=== PATIENT | male | born 1965 | race African-American/Black ===

== ENCOUNTER 2017-06-12 21:01 | Inpatient (IN) | payer OTHER, MEDICARE ==
[~2017-06-12] VITALS: Ht 182.9 cm; Wt 117.7 kg
--- NOTE | 2017-06-12 21:04 | ED GENERAL ADULT ---
History of Present Illness General Chief Complaint: General Adult Stated Complaint: BIBA B/S [employer] [place] [employer] CUST[place] Allergies Coded Allergies: MDX - Meperidine (From DEMEROL) (02/23/11) Past History Travel History Traveled to [place] past 21 day No Psychosocial History What is your primary language Croatian Progress Plan of Care: Orders Procedure Date/time Status MIXED VENOUS BLOOD GAS (GEN) 06/12 2103 Active COMPREHENSIVE METABOLIC PANEL 06/12 2103 Active CBC WITHOUT DIFFERENTIAL 06/12 2103 Active ACETONE 06/12 2103 Active Departure Departure Condition: Stable Referrals: Patient Has No Primary Care Dr (PCP/Family) Departure Forms: Customer Survey General Discharge Information
--- NOTE | 2017-06-12 21:09 | ED GENERAL ADULT ---
History of Present Illness General Chief Complaint: General Adult Stated Complaint: BIBA B/S [employer] [place] [employer] C[place] Source: patient, EMS, police Exam Limitations: intoxication Vital Signs & Intake/Output Vital Signs & Intake/Output Vital Signs Date Time Temp Pulse Resp B/P B/P Pulse O2 O2 Flow FiO2 Mean Ox Delivery Rate 06/12 2356 80 112/76 06/12 2324 63 126/83 06/12 2259 68 178/101 06/12 2245 98.9 87 16 178/101 94 Room Air 06/12 2107 96.6 82 18 171/88 94 Room Air ED Intake and Output 06/13 0000 06/12 1200 Intake Total 480 Output Total 600 Balance -120 Intake, Oral 480 Output, Urine 600 Patient 259 lb Weight Weight Standing Scale Measurement Method Allergies Coded Allergies: meperidine (From DEMEROL) (VOMITING 06/12/17) Reconcile Medications Dapagliflozin Propanediol (Farxiga) 10 MG TABLET 1 TAB PO DAILY DM (Reported) Gabapentin (Neurontin) 800 MG TABLET 1 TAB PO BID NERVE PAIN (Reported) Insulin Aspart, Recombinant (Novolog Flexpen) 100 UNIT/ML INSULN.PEN 30 UNITS SC QPM DM (Reported) Losartan Potassium 50 MG TABLET 1 TAB PO DAILY BP (Reported) Risperidone Microspheres (Risperdal Consta) (Unknown Strength) SYRINGE ( Unknown Dose) INJ AD UNKNOWN (Reported) Triage Note: PT [facility] [place] [employer] CUSTODY. STATES HE WAS A DIABETIC, PD CALLED EMS FOR A BLOOD SUGAR CHECK AND IT WAS 400, TRANSPORTED TO ER FOR EVAL OF BLOOD SUGAR. PTS CURRENT SUGAR 325. DENIES ANY ABD PAIN. STATES HE FEELS THIRSTY. DANIEL Zarate IN ROOM FOR EVAL. PD AT BEDSIDE WITH PT WELL. Triage Nurses Notes Reviewed? yes Onset: Abrupt Duration: unknown duration Timing: recent history Injury Environment: home No Modifying Factors: none HPI: 52-year-old male comes into the emergency room for further evaluation of elevated blood sugar. Patient is in police custody. He had a warrant for his arrest. He is a type II diabetic. His sugar was reportedly elevated. EMS came over and checked him out per police request. He denies any chest pain shortness of breath. Denies any suicidal or homicidal ideation. Denies any pain. He admits to cocaine use. Denies any alcohol use. (Ryder Shipman) Past History Travel History Traveled to [place] past 21 day No Medical History Any Pertinent Medical History? see below for history Endocrine: diabetes Surgical History Surgical History: non-contributory Psychosocial History What is your primary language Thai Family History Hx Contributory? No (Ryder Shipman) Review of Systems Review of Systems Constitutional: Reports: see HPI. EENTM: Reports: no symptoms. Respiratory: Reports: no symptoms. Cardiovascular: Reports: no symptoms. GI: Reports: no symptoms. Genitourinary: Reports: no symptoms. Musculoskeletal: Reports: no symptoms. Skin: Reports: no symptoms. Neurological/Psychological: Reports: see HPI. Hematologic/Endocrine: Reports: no symptoms. Immunologic/Allergic: Reports: no symptoms. All Other Systems: Reviewed and Negative (Ryder Shipman) Physical Exam Physical Exam General Appearance: well developed/nourished, alert, awake, intoxicated Head: atraumatic, normal appearance Eyes: Bilateral: normal appearance. Ears, Nose, Throat: normal ENT inspection, hearing grossly normal Neck: normal inspection Respiratory: normal breath sounds, no respiratory distress Cardiovascular: regular rate/rhythm Gastrointestinal: soft Back: normal inspection Extremities: normal inspection, normal range of motion Skin: intact, normal color Core Measures ACS in differential dx? Yes CVA/TIA Diagnosis: No Sepsis Present: No Sepsis Focused Exam Completed? No (Ryder Shipman) Progress Differential Diagnoses I considered the following diagnoses in my evaluation of the patient: DKA, hyperosmolar, dehydration, drug intoxication Plan of Care: Orders Procedure Date/time Status Nothing by Mouth 06/13 B Active EKG 06/13 1000 Active TROPONIN LEVEL 06/13 0900 Active PARTIAL THROMBOPLASTIN TIME 06/13 0530 Active CBC WITHOUT DIFFERENTIAL 06/13 0400 Active BASIC ELECTROLYTES PLUS BUN&CR 06/13 0400 Active EKG 06/13 0400 Active TROPONIN LEVEL 06/13 0300 Active Consistent Carbohydrate 2 06/12 D Complete Saline Lock 06/12 2331 Active Misc Message 06/12 2331 Active ED Holding Orders 06/12 2331 Active Admit to inpatient 06/12 2331 Active Vital Signs 06/12 2331 Active Lab Add-on Test 06/12 2319 Active Pathway - chart 06/12 2316 Active Patient Data 06/12 2316 Active Code Status 06/12 2316 Active Patient Data 02/08 2310 Active Add-on Test (ER Only) 06/12 231 Active Add-on Test (ER Only) 06/12 230 Active ECHOCARDIOGRAM 06/12 230 Active Intake & Output 06/12 2249 Active Add-on Test (ER Only) 06/12 2232 Active Telemetry/Base Ply Hand 06/12 2232 Active TROPONIN LEVEL 06/12 2133 Active PARTIAL THROMBOPLASTIN TIME 06/12 2133 Complete PROTHROMBIN TIME 06/12 2133 Complete PHOSPHORUS 06/12 2133 Active MAGNESIUM 06/12 2133 Active LIPID PANEL 06/12 2133 Active GLYCOSYLATED HGB 06/12 2133 Active ETHANOL 06/12 2133 Active URINE DRUGS OF ABUSE 06/12 2107 Complete EKG 06/12 2107 Active MIXED VENOUS BLOOD GAS (GEN) 06/12 2103 Active COMPREHENSIVE METABOLIC PANEL 06/12 2103 Active CBC WITHOUT DIFFERENTIAL 06/12 2103 Complete ACETONE 06/12 2103 Active Pathway - chart 06/12 UNK Active House Staff 06/12 UNK Active VTE Mechanical Prophylaxis 06/12 UNK Active FingerStick- Glucose 06/12 UNK Active EKG 06/12 UNK Active CASE MANAGEMENT CONSULT 06/12 UNK Active Current Medications Sig/Demetrius Start time Last Medication Dose Stop Time Status Admin Multivitamins 1 TAB DAILY 06/13 1000 AC (Theragran Vitamins) Insulin Aspart 0 TIDAC 06/13 0800 UNVr (NovoLOG) Insulin Human Regular 0 Q6 06/12 2359 UNVr 06/13 (NovoLIN R) 0006 Heparin Sodium 25,000 UNIT Q24H 06/12 2245 AC 06/12 (Porcine) 2321 (Heparin) Sodium Chloride 500 ML Laboratory Tests 06/12/172246: Urine Opiates Screen < 100.00, Methadone Screen < 40, Barbiturate Screen < 60, Ur Phencyclidine Scrn < 6.00, Amphetamines Screen < 100, U Benzodiazepines Scrn < 85, Urine Cocaine Screen > 1000 H, Urine Cannabis Screen 6.20 06/12/172133: Anion Gap 10, Estimated GFR > 60, BUN/Creatinine Ratio 11.7, Glucose 320 H, Hemoglobin A1c Pending, Calcium 9.2, Phosphorus 4.2, Magnesium 2.0, Total Bilirubin 0.4, AST 18, ALT 34, Alkaline Phosphatase 97, Troponin I 0.41 *H, Total Protein 6.3, Albumin 3.3 L, Globulin 3.0, Albumin/Globulin Ratio 1.1, Triglycerides 137, Cholesterol 223 H, LDL Cholesterol, Calc 130 H, HDL Cholesterol 66 H, Cholesterol/HDL Ratio 3, PT 10.3, INR 0.98, APTT 31, CBC w Diff NO MAN DIFF REQ, RBC 4.34 L, MCV 95.0 H, MCH 30.2, MCHC 31.8 L, RDW 14.0 , MPV 10.0, Gran % 64.1, Lymphocytes % 24.5, Monocytes % 9.2, Eosinophils % 2.0, Basophils % 0.2, Absolute Granulocytes 5.4, Absolute Lymphocytes 2.1, Absolute Monocytes 0.8 H, Absolute Eosinophils 0.2, Absolute Basophils 0, Serum Alcohol < 10.0, Acetone Level NEGATIVE 06/12/17 2108: Troponin I Cancelled Diagnostic Imaging: Viewed by Me: Radiology Read. Discussed w/RAD: Radiology Read. Radiology Impression: PATIENT: DEBORAH DUKE PRESENT AGE: 52 PATIENT ACCOUNT NO: [id number] : 63 LOCATION: [facility], [place] ORDERING PHYSICIAN: Ryder SANCHEZ SERVICE DATE: 06/12/17 EXAM TYPE: RAD - XRY-PORTABLE CHEST XRAY EXAMINATION: XR PORTABLE CHEST CLINICAL INFORMATION: Chest pain COMPARISON: None TECHNIQUE: Portable frontal view of the chest was obtained. 11:05 PM FINDINGS: No significant abnormality is noted involving the heart, lungs, mediastinum, bony thorax or soft tissues. IMPRESSION: Unremarkable examination. DICTATED BY: Robert Leal MD DATE/TIME DICTATED:06/12/172340 MFTS:SERGE DATE/TIME TRANSCRIBED:06/12/172340 CONFIDENTIAL, DO NOT COPY WITHOUT APPROPRIATE AUTHORIZATION. <Electronically signed in Other Vendor System> SIGNED BY: Robert Leal MD 06/12/17 5634 Initial ED EKG: normal sinus rhythm, rate (84), nonspecific ST T wave chg (Ryder Shipman) Departure Departure Disposition: HOME OR SELF CARE Condition: Stable Clinical Impression Primary Impression: Non-STEMI (non-ST elevated myocardial infarction) Referrals: Patient Has No Primary Care Dr Departure Forms: Customer Survey General Discharge Information Admission Note Spoke With: Dorota Moran MD Documentation of Exam: Documentation of any treatments & extenuating circumstances including Concerns Regarding Discharge (functional status, medication knowledge or non-compliance, living conditions, etc.) that warrant an admission rather than observation: Patient will require IV heparin. Cardiology consultation. Serial troponins. Cardiac telemetry. Medically not safe for discharge. (Ryder Shipman) PA/IRRIGATOR VAL[employer] PIPE Co-Sign Statement Statement: ED Attending supervision documentation- [x] I saw and evaluated the patient. I have also reviewed all the pertinent lab results and diagnostic results. I agree with the findings and the plan of care as documented in the PA's/IRRIGATOR VALVE PIPE's documentation. 06/12/17, 22:54... I assumed primary care of the patient. pt with + troponin, likely due to cocaine abuse, non acute ekg. He is now chest pain free. pt merits aspirin, iv heparin, serial troponins/ekg, cards eval in am. [] I have reviewed the ED Record and agree with the PA's/IRRIGATOR VALVE PIPE's documentation. [] Additions or exceptions (if any) to the PAs/IRRIGATOR VALVE PIPE's note and plan are summarized below: [] (Carissa CERVANTES,Miah Bautista) Critical Care Note Critical Care Note Critical Care Time: 30-74 min (45) (Ryder Shipman)
[2017-06-12 21:49] LABS: ABSOLUTE BASOPHIL COUNT 0 /CUMM (0.0-0.2); ABSOLUTE EOSINOPHIL COUNT 0.2 /CUMM (0.0-0.7); ABSOLUTE GRANULOCYTE CT 5.4 /CUMM (1.4-6.5); ABSOLUTE LYMPH COUNT 2.1 /CUMM (1.2-3.4); ABSOLUTE MONOCYTE COUNT 0.8 /CUMM (0.10-0.60); BASOPHIL % 0.2 % (0.0-2.0); GRANULOCYTE % 64.1 % (42.2-75.2); HEMATOCRIT 41.3 % (42-52); MEAN CORPUSCULAR HGB 30.2 PG (27.0-31.0); MEAN CORPUSCULAR HGB CONC 31.8 G/DL (33.0-37.0); PLATELET COUNT 370 /CUMM (130-400); RED BLOOD CELL CT 4.34 /CUMM (4.70-6.10); WHITE BLOOD CELL COUNT 8.4 /CUMM (4.8-10.8)
[2017-06-12] MEDS ORDERED: NOVOLOG FL100 UNIT/1 SC (21:56)
[2017-06-12] MEDS ORDERED: FARXIGA10 M1 PO (21:57)
[2017-06-12] MEDS ORDERED: LOSARTAN POTASS50 M1 PO (21:57)
[2017-06-12] MEDS ORDERED: RISPERDAL50 MG/2 ML INJ (21:58)
[2017-06-12] MEDS ORDERED: NEURONTIN800 M2 PO (21:58)
--- NOTE | 2017-06-12 22:59 | History & Physical ---
Cornell Lane MD 06/12/17 2258: General Information and HPI MD Statement: I have seen and personally examined DEBORAH DHILLON and documented this H&P. The patient is a 52 year old M who presented with a patient stated chief complaint of [hyperglycemia, NSTEMI]. Source of Information: patient, police Exam Limitations: poor historian, intoxication History of Present Illness: Patient is a 52-year-old male with a PMH significant for hypertension, diabetes, diabetic neuropathy, bipolar disorder, cocaine abuse presents to the hospital after being arrested found to be hyperglycemic. Patient was evaluated in the ED and found to have elevated troponins. Patient states that he has been smoking crack cocaine and marijuana heavily since 6 days prior to admission. He reports that he had been having some chest pain and palpitations associated with cocaine use. He is currently pain-free and not experiencing palpitations. He denied any shortness of breath, diaphoresis, lightheadedness, dizziness, nausea, vomiting, fever, chills associated with these episodes chest pain. He has never had an NV in the past required a cardiac catheterization and has no significant family history of cardiac disease or sudden . However the patient is a very poor historian and incredibly somnolent, nodding off multiple times during the interview making his HPI and review of systems unreliable. Patient had the police called on him for going [id number] and asking for money , at this point he was found to have a warrant out for his arrest and was taken into custody. Allergies/Medications Allergies: Coded Allergies: meperidine (From DEMEROL) (VOMITING 06/12/17) Past History Travel History Traveled to [place] past 21 day No Medical History Neurological: diabetic neuropathy EENT: NONE Cardiovascular: hypertension Respiratory: NONE Gastrointestinal: NONE Hepatic: NONE Renal: NONE Musculoskeletal: NONE Psychiatric: bipolar disease Endocrine: diabetes Blood Disorders: NONE Cancer(s): NONE THERAPY TECH/Reproductive: NONE Surgical History Surgical History: non-contributory Past Family/Social History Family History Relations & Conditions if any MOTHER CVA Psychosocial History Who Do You Live With? self Primary Language: Setswana Smoking Status: Current Everyday Smoker ETOH Use: occasional use Illicit Drug Use: cocaine, marijuana Review of Systems Review of Systems Constitutional: Denies: chills, diaphoresis, fever, weakness. EENTM: Denies: blurred vision, double vision, visual changes. Cardiovascular: Reports: chest pain (associated with cocaine use), palpitations (associated with cocaine use). Respiratory: Denies: cough, short of breath, wheezing. GI: Denies: constipation, diarrhea, nausea, changes in stool, vomiting. Genitourinary: Reports: no symptoms. Musculoskeletal: Reports: no symptoms. Exam & Diagnostic Data Last 24 Hrs of Vital Signs/I&O Vital Signs Date Time Temp Pulse Resp B/P B/P Pulse O2 O2 Flow FiO2 Mean Ox Delivery Rate 06/12 2356 80 112/76 06/12 2324 63 126/83 06/12 2259 68 178/101 06/12 2245 98.9 87 16 178/101 94 Room Air 06/12 2107 96.6 82 18 171/88 94 Room Air Intake & Output 06/13 0800 06/13 0000 06/12 1600 Intake Total 480 Output Total 600 Balance -120 Intake, Oral 480 Output, Urine 600 Patient 259 lb Weight Weight Standing Scale Measurement Method Physical Exam General Appearance Cooperative, No Acute Distress, somnolent, oriented x 3 Skin Temp/Moisture Exam: Warm/Dry Sepsis Skin Exam (color): Normal for Ethnicity HEENT Atraumatic, PERRLA, EOMI, Mucous Membr. moist/pink Neck Supple, No JVD Cardiovascular Regular Rate, Normal S1, Normal S2 Lungs Clear to Auscultation, Normal Air Movement Abdomen Normal Bowel Sounds, Soft, No Tenderness Neurological Normal Speech, Strength at 5/5 X4 Ext, Normal Tone, Sensation Intact, Cranial Nerves 3-12 NL Extremities No Clubbing, No Cyanosis, 2+ pitting edema of the distal LEs bilaterally, with faint distal pulses on the L leg and no palpable pulses of the R leg, R leg pulses also not detectable with doppler, LEs non tender to palpation Last 24 Hrs of Labs/Taiwo: Laboratory Tests 06/12/17 2247: Urine Opiates Screen < 100.00, Methadone Screen < 40, Barbiturate Screen < 60, Ur Phencyclidine Scrn < 6.00, Amphetamines Screen < 100, U Benzodiazepines Scrn < 85, Urine Cocaine Screen > 1000 H, Urine Cannabis Screen 6.20 06/12/17 2134: Anion Gap 10, Estimated GFR > 60, BUN/Creatinine Ratio 11.7, Glucose 320 H, Hemoglobin A1c Pending, Calcium 9.2, Phosphorus 4.2, Magnesium 2.0, Total Bilirubin 0.4, AST 18, ALT 34, Alkaline Phosphatase 97, Troponin I 0.41 *H, Total Protein 6.3, Albumin 3.3 L, Globulin 3.0, Albumin/Globulin Ratio 1.1, Triglycerides 137, Cholesterol 223 H, LDL Cholesterol, Calc 130 H, HDL Cholesterol 66 H, Cholesterol/HDL Ratio 3, PT 10.3, INR 0.98, APTT 31, CBC w Diff NO MAN DIFF REQ, RBC 4.34 L, MCV 95.0 H, MCH 30.2, MCHC 31.8 L, RDW 14.0 , MPV 10.0, Gran % 64.1, Lymphocytes % 24.5, Monocytes % 9.2, Eosinophils % 2.0, Basophils % 0.2, Absolute Granulocytes 5.4, Absolute Lymphocytes 2.1, Absolute Monocytes 0.8 H, Absolute Eosinophils 0.2, Absolute Basophils 0, Serum Alcohol < 10.0, Acetone Level NEGATIVE 06/12/17 2108: Troponin I Cancelled Diagnostic Data EKG Results NSR, possible slight J point elevation in V1-3, Normal axis, HR 84, QTc 478 CXR Results unremarkable Assessment/Plan Assessment: Patient is a 52-year-old male with a PMH significant for hypertension, diabetes, diabetic neuropathy, bipolar disorder, cocaine abuse presents to the hospital after being arrested found to be hyperglycemic. Patient was evaluated in the ED and found to have elevated troponins. He is currently asymptomatic but has been having chest pain and palpitations associated with smoking crack cocaine over the past several days. Problem list # NSTEMI #Hyperglycemia #Cocaine abuse #History of hypertension, bipolar disorder Plan -Admit to telemetry -Continue telemetry monitoring -Serial troponins and EKG, trend troponins until they peak -echocardiogram -Every 6 hours Accu-Cheks and nothing by mouth NovoLog sliding scale -Levemir 10 units twice a day -Endocrinology consult and cardiology consult -IV heparin -Aspirin -Continue home dose of Neurontin 800 mg twice a day -hold losartan for now, patient received IV lopressor in ED -Psych consult - Arterial doppler US of the LLE given nonpalpable pusles and undetectable pules with doppler at bedside -Attempted to reach out to patient's sister over the phone, there was no answer and a message was not left. Should be called again in the morning to inform her of patient's hospitalization. -Nothing by mouth pending cardiology evaluation in a.m. -DVT prophylaxis: heparin, ALPS -Code status: full code As Ranked By This Provider Problem List: 1. Non-STEMI (non-ST elevated myocardial infarction) 2. Hyperglycemia Core Measures/Misc (01/19) Acute Coronary Syndrome ACS Diagnosis: Yes No Beta-Roderick d/t cocaine positive Congestive Heart Failure Congestive Heart Failure Diagnosis No Cerebrovascular Accident CVA/TIA Diagnosis: No VTE (View Protocol) VTE Risk Factors Age>40 No Mechanical VTE Prophylaxis d/t N/A MechProphylax Ordered No VTE Pharm Prophylaxis d/t NA PharmProphylax ordered Sepsis (View protocol) Sepsis Present: No Cipriano CERVANTES,[facility] 06/13/17 0136: General Information and HPI Allergies/Medications Home Med list Aspirin (Aspirin*) 81 MG TAB.CHEW 81 MG PO DAILY HEART Atorvastatin Calcium 40 MG TABLET 40 MG PO 1700 HEART Carvedilol 3.125 MG TABLET 3.125 MG PO BID heart Dextrose 5 %-0.45 % NaCl (Dextrose 5%-0.45% NaCl IV Soln) 5 %-0.45 % IV.SOLN 50 ML IV PER HOUR NPO Gabapentin (Neurontin) 800 MG TABLET 1 TAB PO BID NERVE PAIN (Reported) Heparin Sod,Porcine/0.9 % NaCl (Heparin-Ns 25,000 Units/250 Ml) 25,000 UNIT/250 ML (100 UNIT/ML) IV.SOLN 1 BAG IV SEE ADMIN CRITERIA NSTEMI per ACS protocol Insulin Aspart (Novolog) 100 UNIT/ML VIAL 0 UNITS SC Q4 DM Q4 hours Blood Insulin Sugar Units <80 0 81-100 0 151-200 4 201-250 5 251-300 6 301-350 7 351-400 8 >400 8 Call Doctor Insulin Detemir (Levemir) 100 UNIT/ML VIAL 10 UNITS SC BID DM Losartan Potassium 50 MG TABLET 1 TAB PO DAILY BP (Reported) Nitroglycerin (Nitro-Bid) 2 % OINT...G. 0.5 GM TOP Q12 chest pain Risperidone Microspheres (Risperdal Consta) 50 MG/2 ML SYRINGE 1 SYR INJ EVERY 2 WEEKS BIPOLAR (Reported) Resident Review Statement Resident Statement: examined this patient, discussed with music intern Other Findings: H: Mr. Dhillon is a 52-year-old gentleman past medical history of diabetes, bipolar disorder, peripharel neuropathy, hypertension who was brought in by law enforcement after he was found to be hyperglycemic 400, after telling law enforcement that he was a diabetic. It appears that Mr. Dhillon had been knocking on the doors of various individuals until the police were called. They unit went to see Mr. Dhillon and upon searching his name found that there was a warrant out for his arrest. He was subsequently taken in under police custody. EMS subsequently conducted a fingerstick and found the patient to have a blood sugar level of 400. During our clinical interaction with the chief supply chain officer at bedside the patient was pleasantly confused and somnolent however able to answer questions after having to be prompted to wake up several times. At the time of our clinical interaction patient was chest pain-free. Prior to admission the patient does endorse using cannabis and smoking crack cocaine. He denies any IV drug abuse. No family history of any individuals with sudden cardiac . 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 R on review of systems he denies any fever, chills, nausea, vomiting he did endorse heart palpitations. He denied any shortness of breath. E: Temperature 96.6. Respirations 18. Blood pressure 171/88. Heart rate was 82. General Appearance Alert, Oriented X3, Cooperative, No Acute Distress. Manufacturing Controller at Bedside. Skin Temp/Moisture Exam: Warm/Dry. Neck Supple,Normal Range of motion. JVD + Cardiovascular : Normal S1, Normal S2. No Murmurs. Gallops. Lungs: Mild Wheezing noted throughout. Abdomen Normal Bowel Sounds, Soft, No Tenderness Neurological Normal Speech, Strength at 5/5 X4 Ext, Normal Tone, Sensation Intact. Abnormal Proprioception in Left lower extemity. Cranial Nerves 3-12 NL Extremities 2+ LE edema below the knees. LLE > RLE Vascular Pulses Weak. L White cell count 8.4. H&H 13.1 and 41.3 respectively. Platelets 370. Initial troponin 0.41. I: As Above. Ekg: Normal sinus rhythm. QTC 478. J waves V2 and V3. Chest x-ray done was within normal limits and unremarkable. A/P Mr. Dhillon is a 52-year-old gentleman past medical history of diabetes, bipolar disorder, for peripharel neuropathy and hypertension who was brought in by law enforcement after he was found to be hyperglycemic. While in the emergency department the patient troponin did come back at 0.41. He was asymptomatic during the course of our interaction. He is elevations in troponin is likely attributed to recent cocaine use. NSTEMI. History of bipolar disorder History of diabetes History of peripheral neuropathy History of substance abuse. Admit patient to telemetry. Serial troponins and EKG. Continue IV heparin Continue aspirin. Obtain formal cardiology consultation in the a.m. Echocardiogram in a.m. Continue IV heparin Avoid beta blockers, given cocaine use. Nitroglycerin paste every 12 hours. Accu-Cheks every 4. Maintain Novolin SS Levemir 10 units twice a day. Obtain endocrinology consultation in a.m. Obtain psych consultation in a.m. Arterial Doppler in a.m. to rule out occlusion. Venous ultrasound to rule out DVT. Patient was unsure of his medication and will need to confirm medication in a.m. Keep nothing by mouth after midnight. DVT prophylaxis on IV heparin. Patient is a full code. Dean CERVANTES, [facility] 06/13/17 0211: Attending MD Review Statement Attending Statement Attending MD Statement: examined this patient, discuss w/resident/PA/EIGHT SECTION BLOWER, agreed w/resident/PA/EIGHT SECTION BLOWER, reviewed images, amended to note Attending Assessment/Plan: 52 yo M with h/o bipolar disorder, T2DM on insulin c/b neuropathy, HTN, who was in police custody today as he was randomly knocking on people's doors asking for money. While in custody, police called EMS for a blood sugar check which was noted to be in 400's, so he was sent to ER for further eval. Patient is very somnolent, arousble and tends to have tangential thinking. He has been using cocaine and marijuana but denies IV drug use. He reports having substernal chest pain for the past 5 days but is not able to describe it or give an details. He is currently chest pain free. Patient denies any underlying cardiac history ischemic heart disease or arrhythmia. He states he has 'mold in his lungs' and he was admitted for this to [facility] last year. 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 Vitals stable except for elevated BP. Exam: lethargic, tends to fall asleep while talking, he is tearful at times, oriented x2, not aware of date/time. MMM, Neck supple, PERRL, Chest b/l scattered wheeze, Heart S1S2 regular, systolic murmur+, Abd benign, LE: LLE more swollen compared to RLE, dopplerable peripheral pulse on left, not dopplerable on the right. Labs: no leukocytosis, H/H 13.1/41.3, Na 133, glucose 320, trop 0.41. Acetone neg. Alcohol < 10. Urine tox screen positive for cocaine and cannabis. CXR: unremarkable. EKG: Sinus rhythm with J-point elevation in V2-3, with TWI in I and aVL (no old EKG), Qtc 478. In the ER, patient received IV fluids, insulin levemir, aspirin IV metoprolol and IV heparin. Assessment and plan: 1. NSTEMI 2. Heavy cocaine abuse 3. Type 2 diabetes on insulin with peripheral neuropathy 4. Essential hypertension 5. Polysubstance abuse 6. History of bipolar disorder 7. Possible underlying peripheral vascular disease - Admit to Telemetry - Monitor for arrhythmias - Serial EKG and troponin until peak - Continue aspirin and IV heparin per PTT protocol for ACS - Obtain echocardiogram - Cardio consult (Dr. Hill was called by ER) - No beta blockers given patient is a heavy cocaine user (cocaine induced vasospasm) - NPO after midnight for possible ?cardiac cath - Watch for recurrent chest pain or significant troponin elevated or EKG changes - Add nitropaste, oxygen supplementation and IV morphine as needed for pain. - Add high dose statin - Hold losartan, monitor BP. - Accucheks, check HbA1c, hold Farxiga, initiate novolog NPO SS with levemir 10 units BID - Obtain Endo consult - Obtain records from PCP and last visit at [facility] - Psych consult for management of bipolar disorder continue risperidone - Obtain LE arterial and bilateral venous dopplers - Please confirm CMR in AM with patient's PCP and pharmacy. DVT ppx IV heparin. Full code.
[2017-06-12 23:00] LABS: PT 10.3 SEC (9.4-12.5); PTT 31 SEC (25-37)
--- NOTE | 2017-06-12 23:45 | RADIOLOGY REPORT ---
EXAMINATION: XR PORTABLE CHEST CLINICAL INFORMATION: Chest pain COMPARISON: None TECHNIQUE: Portable frontal view of the chest was obtained. 11:05 PM FINDINGS: No significant abnormality is noted involving the heart, lungs, mediastinum, bony thorax or soft tissues. IMPRESSION: Unremarkable examination.
--- NOTE | 2017-06-13 00:49 | Admission Certification ---
Admission Certification Certification Statement - As attending physician, I certify that at the time of - admission, based on clinical presentation, severity of - symptoms, need for further diagnostic testing and - therapeutic interventions, and risk of adverse outcomes - without in-hospital treatment, in my clinical assessment, - this patient requires an acute hospital stay for a minimum - of two nights or longer. I have also considered psychsocial - factors such as support system, advanced age, financial - issues, cognitive issues, and failed out-patient treatments, - past re-admission history, safety of patient, and lack of - compliance as applicable. Specific rationale supporting this admission is: NSTEMI
[2017-06-13 01:21] VITALS: BP 138/87
[2017-06-13 06:26] VITALS: BP 160/74
--- NOTE | 2017-06-13 07:21 | Cons- Endocrinology ---
General Information and HPI Consulting Request Date of Consult: 06/13/17 Requested By: medical team Reason for Consult: uncontrolled diabetes Source of Information: old records Exam Limitations: unable to give history History of Present Illness: This 52-year-old male apparently has a past history of hypertension and diabetes as well as bipolar disorder. He also has a history of cocaine abuse. He was brought to the hospital after being arrested and found to have an elevated blood sugar. He cannot give me a history at this time because he is too drowsy. Apparently last night he stated he also had chest pain and palpitations and his troponin was positive. He was smoking crack cocaine and marijuana heavily for at least 6 days prior to admission. The patient sugars by fingerstick at midnight was 271 and that 6 AM was 349. He is presently on Levemir 10 units twice a day as well as regular insulin every 6 hours. Allergies/Medications Allergies: Coded Allergies: meperidine (From DEMEROL) (VOMITING 06/12/17) Home Med List: Dapagliflozin Propanediol (Farxiga) 10 MG TABLET 1 TAB PO DAILY DM (Reported) Gabapentin (Neurontin) 800 MG TABLET 1 TAB PO BID NERVE PAIN (Reported) Insulin Aspart, Recombinant (Novolog Flexpen) 100 UNIT/ML INSULN.PEN 30 UNITS SC QPM DM (Reported) Losartan Potassium 50 MG TABLET 1 TAB PO DAILY BP (Reported) Risperidone Microspheres (Risperdal Consta) (Unknown Strength) SYRINGE ( Unknown Dose) INJ AD UNKNOWN (Reported) Review of Systems Comments Cannot give review of systems because 2 drops Past History Travel History Traveled to [place] past 21 day No Medical History Blood Transfusion Hx: No Neurological: diabetic neuropathy EENT: NONE Cardiovascular: hypertension Respiratory: NONE Gastrointestinal: NONE Hepatic: NONE Renal: NONE Musculoskeletal: NONE Psychiatric: bipolar disease Endocrine: diabetes Blood Disorders: NONE Cancer(s): NONE POSTPARTUM RN/Reproductive: NONE Surgical History Surgical History: non-contributory Family History Relations & Conditions If Any: MOTHER CVA Psychosocial History Where Do You Live? Home Who Do You Live With? self Services at Home: None Primary Language: Pashto Smoking Status: Current Everyday Smoker ETOH Use: occasional use Illicit Drug Use: cocaine, marijuana Exam & Diagnostic Data Last 24 Hrs of Vital Signs/I&O Vital Signs Date Time Temp Pulse Resp B/P B/P Pulse O2 O2 Flow FiO2 Mean Ox Delivery Rate 06/13 0626 60 20 160/74 95 06/13 0121 97.8 75 20 138/87 94 06/13 0119 Room Air 06/12 2356 80 112/76 06/12 2324 63 126/83 06/12 2259 68 178/06/12 2245 98.9 87 16 178/101 94 Room Air 06/12 2106 96.6 82 18 171/88 94 Room Air Intake & Output 06/13 0000 06/12 1600 Intake Total 480 Output Total 600 Balance -120 Intake, Oral 480 Output, Urine 600 Patient 259 lb Weight Weight Standing Scale Standing Scale Measurement Method Vital Signs Date Time Temp Pulse Resp B/P B/P Pulse O2 O2 Flow FiO2 Mean Ox Delivery Rate 06/13 625 60 20 160/74 95 06/13 012 97.8 75 20 138/87 94 06/13 0119 Room Air 06/126 80 112/76 06/12 2324 63 126/83 06/12 2259 68 178/06/12 2245 98.9 87 16 178/101 94 Room Air 06/12 210 96.6 82 18 171/88 94 Room Air Intake & Output 06/13 0000 06/12 1600 Intake Total 480 Output Total 600 Balance -120 Intake, Oral 480 Output, Urine 600 Patient 259 lb Weight Weight Standing Scale Standing Scale Measurement Method Physical Exam General Appearance: lethargic Head: normal appearance Neck: normal inspection Cardiovascular: regular rate/rhythm Gastrointestinal: normal bowel sounds, soft Extremities: normal inspection Neurologic/Psych: drowsy and falls asleep while tryin g to answer questions Labs/Taiwo Results: Laboratory Tests 06/13 06/13 06/12 0400 0300 2247 Chemistry Sodium Cancelled Potassium Cancelled Chloride Cancelled Carbon Dioxide Cancelled Anion Gap Cancelled BUN Cancelled Creatinine Cancelled BUN/Creatinine Ratio Cancelled Troponin I (<0.11 ng/ml) 0.41 *H Hematology CBC w Diff Cancelled WBC Cancelled RBC Cancelled Hgb Cancelled Hct Cancelled MCV Cancelled MCH Cancelled MCHC Cancelled RDW Cancelled Plt Count Cancelled MPV Cancelled Toxicology Urine Opiates Screen (>2000 NG/ML) < 100.00 Methadone Screen (>300 NG/ML) < 40 Barbiturate Screen (>200 NG/ML) < 60 Ur Phencyclidine Scrn (>25 NG/ML) < 6.00 Amphetamines Screen (>1000 NG/ML) < 100 U Benzodiazepines Scrn (>200 NG/ML) < 85 Urine Cocaine Screen (>300 NG/ML) > 1000 H Urine Cannabis Screen (>50 NG/ML) 6.20 08 02 2134 2108 Chemistry Sodium (137 - 145 mmol/L) 133 L Potassium (3.5 - 5.1 mmol/L) 4.4 Chloride (98 - 107 mmol/L) 96 L Carbon Dioxide (22 - 30 mmol/L) 27 Anion Gap (5 - 16) 10 BUN (9 - 20 mg/dL) 14 Creatinine (0.7 - 1.2 mg/dL) 1.2 Estimated GFR (>60 ml/min) > 60 BUN/Creatinine Ratio (7 - 25 %) 11.7 Glucose (65 - 99 mg/dL) 320 H Hemoglobin A1c (4.2 - 5.8 %) Pending Calcium (8.4 - 10.2 mg/dL) 9.2 Phosphorus (2.5 - 4.5 mg/dL) 4.2 Magnesium (1.6 - 2.3 mg/dL) 2.0 Total Bilirubin (0.2 - 1.3 mg/dL) 0.4 AST (17 - 59 U/L) 18 ALT (21 - 72 U/L) 34 Alkaline Phosphatase (< 127 U/L) 97 Troponin I (<0.11 ng/ml) 0.41 *H Cancelled Total Protein (6.3 - 8.2 g/dL) 6.3 Albumin (3.5 - 5.0 g/dL) 3.3 L Globulin (1.9 - 4.2 gm/dL) 3.0 Albumin/Globulin Ratio (1.1 - 2.2 %) 1.1 Triglycerides (<150 mg/dL) 137 Cholesterol (< 200 MG/DL) 223 H LDL Cholesterol, Calc (65 - 129 mg/dL) 130 H HDL Cholesterol (40 - 60 mg/dL) 66 H Cholesterol/HDL Ratio (0.00 - 4.88 %) 3 Coagulation PT (9.4 - 12.5 SEC) 10.3 INR (0.90 - 1.17) 0.98 APTT (25 - 37 SEC) 31 Hematology CBC w Diff NO MAN DIFF REQ WBC (4.8 - 10.8 /CUMM) 8.4 RBC (4.70 - 6.10 /CUMM) 4.34 L Hgb (14.0 - 18.0 G/DL) 13.1 L Hct (42 - 52 %) 41.3 L MCV (80.0 - 94.0 FL) 95.0 H MCH (27.0 - 31.0 PG) 30.2 MCHC (33.0 - 37.0 G/DL) 31.8 L RDW (11.5 - 14.5 %) 14.0 Plt Count (130 - 400 /CUMM) 370 MPV (7.4 - 10.4 FL) 10.0 Gran % (42.2 - 75.2 %) 64.1 Lymphocytes % (20.5 - 51.1 %) 24.5 Monocytes % (1.7 - 9.3 %) 9.2 Eosinophils % (0 - 5 %) 2.0 Basophils % (0.0 - 2.0 %) 0.2 Absolute Granulocytes (1.4 - 6.5 /CUMM) 5.4 Absolute Lymphocytes (1.2 - 3.4 /CUMM) 2.1 Absolute Monocytes (0.10 - 0.60 /CUMM) 0.8 H Absolute Eosinophils (0.0 - 0.7 /CUMM) 0.2 Absolute Basophils (0.0 - 0.2 /CUMM) 0 Toxicology Serum Alcohol (<10 MG/DL) < 10.0 Acetone Level (NEGATIVE) NEGATIVE Assessment/Plan Assessment/Plan This 52-year-old male apparently has a history of diabetes hypertension diabetic neuropathy. She was arrested and brought to the emergency room. Apparently he was smoking cocaine and marijuana heavily prior to admission. The patient is extremely drowsy right now and falls asleep while trying to answer questions. If the patient is too drowsy to even take his diet and we should place him on D5 half-normal saline at 100 cc/h. We can continue Levemir 10 units twice a day. While on IV fluids we can administer NovoLog every 4 hours. NovoLog sliding scale every 4 hours should be less than 150 give no insulin, 151-200 give 4 units NovoLog, 201-250 give 5 units NovoLog, 251-300 give 6 units NovoLog, 301- 350 give 7 units NovoLog, 351 400 give 8 units NovoLog. When the patient is eating we can Hep-Lock his IV fluids and change his NovoLog coverage to before meals only. Further evaluation from a cardiac point of view by cardiology consult. In addition the patient probably needs further neurologic evaluation. Consider CT scan of his head. Consult Acknowledgment - Thank you for your consult request.
--- NOTE | 2017-06-13 07:29 | PN- Housestaff ---
See Addendum Subjective Follow-up For: Hyperglycemia Increased troponins Confusion Tele-Events Since Last Visit: SR, pulse rate 61-85, WBC Subjective: Patient visited today, was lying in bed in no acute distress, was alert and oriented. Monitoring with police at the bedside. No fever or chills, no shortness of breathing, no chest pain, no other events. Patient was more drowsy in a.m. but was alert later during the day. Patient was kept nothing by mouth for possible catheterization. CT scan showed evolving stroke. IV heparin was stopped, case was reviewed with Cardiology, neuro call back requested as soon as initial CT scan result was back , Had conversation with Dr Florence regarding necesity of neuro consult regarding heparin treatment at around 1:30 pm. After reviewing the whole case with cardiology it was decided to transfer patient to [facility] for continuation of the care. Dr Florence was informed about the MRI result of no acure stroke, Dr Florence was planned to follow in [facility] if needed. Review of Systems Constitutional: Reports: see HPI. Objective Last 24 Hrs of Vital Signs/I&O Vital Signs Date Time Temp Pulse Resp B/P B/P Pulse O2 O2 Flow FiO2 Mean Ox Delivery Rate 06/13 1528 97.7 73 20 156/70 96 06/13 0950 144/90 06/13 0626 60 20 160/74 95 06/13 0121 97.8 75 20 138/87 94 06/13 0119 Room Air 06/12 2356 80 112/76 06/12 2324 63 126/83 06/12 2259 68 178/101 06/12 2245 98.9 87 16 178/101 94 Room Air 06/12 2107 96.6 82 18 171/88 94 Room Air Intake & Output 06/13 1600 06/13 0800 06/13 0000 Intake Total 120 480 Output Total 600 Balance 120 -120 Intake, IV 120 Intake, Oral 480 Output, Urine 600 Patient 259 lb Weight Weight Standing Scale Standing Scale Measurement Method Physical Exam General Appearance: Alert, Oriented X3, Cooperative, No Acute Distress Skin: No Significant Lesion Skin Temp/Moisture Exam: Warm/Dry Sepsis Skin Exam (color): Normal for Ethnicity HEENT: Atraumatic, EOMI, Mucous Membr. moist/pink Cardiovascular: Regular Rate, Normal S1, Normal S2 Lungs: Clear to Auscultation Abdomen: Soft, No Tenderness Current Medications: Current Medications Sig/Demetrius Start time Last Medication Dose Route Stop Time Status Admin Aspirin 81 MG DAILY 06/13 1000 AC 06/13 PO 0930 Aspirin 325 MG ONCE ONE 06/12 2245 DC / PO 06/12 2246 2245 Aspirin 0 .STK-MED ONE 06/12 2240 DC PO Atorvastatin Calcium 40 MG 1700 06/13 1700 AC / PO 1655 Carvedilol 3.125 MG BID 06/13 2200 AC PO Dextrose/Sodium 1,000 ML Q20H 06/13 1330 AC 06/13 Chloride IV 1512 Gabapentin 800 MG BID 06/13 1000 AC 06/13 PO 0930 Heparin Sodium 25,000 UNIT Q24H 06/13 1530 AC 06/13 (Porcine) IV 1532 Sodium Chloride 500 ML Heparin Sodium 7,062 UNIT ONCE ONE 06/13 0902 DC 06/13 (Porcine) IV 06/13 0903 0946 Heparin Sodium 0 .STK-MED ONE 06/12 2258 DC (Porcine) .ROUTE Heparin Sodium 5,000 UNIT ONCE ONE 06/12 2245 DC 06/12 (Porcine) IV 06/12 2246 2321 Heparin Sodium 25,000 UNIT Q24H 06/12 2245 DC 06/12 (Porcine) IV 2321 Sodium Chloride 500 ML Insulin Aspart 0 Q4 06/13 1800 AC 06/13 SC 1655 Insulin Aspart 0 TIDAC 06/13 0800 CAN SC Insulin Detemir 10 UNITS BID 06/13 1000 AC 06/13 SC 0946 Insulin Detemir 10 UNITS ONCE ONE 06/12 2145 DC 06/12 SC 08 2146 2149 Insulin Human Regular 0 Q6 06/12 2359 DC 06/13 SC 0625 Metoprolol Tartrate 5 MG ONCE ONE 06/12 2300 DC 06/12 IV 06/12 2301 2259 Metoprolol Tartrate 0 .STK-MED ONE 06/12 2258 DC IV Multivitamins 1 TAB DAILY 06/13 1000 AC PO Nitroglycerin 0.5 GM Q12 06/13 0445 AC 06/13 TOP 0946 Sodium Chloride 1,000 ML BOLUS ONE 06/12 2130 DC 06/12 IV 06/12 2229 2143 Sodium Chloride 1,000 ML BOLUS ONE 06/12 2130 DC 06/12 IV 06/12 2229 2322 Last 24 Hrs of Lab/Taiwo Results Last 24 Hrs of Labs/Mics: Laboratory Tests 06/13/17 1500: APTT 43 H 06/13/17 1000: Troponin I Cancelled 06/13/17 0937: Troponin I 0.38 *H 06/13/17 0743: Anion Gap 8, Estimated GFR > 60, BUN/Creatinine Ratio 14.5, APTT 31, CBC w Diff NO MAN DIFF REQ, RBC 4.07 L, MCV 94.7 H, MCH 30.8, MCHC 32.5 L, RDW 13.7, MPV 9.3, Gran % 72.2, Lymphocytes % 19.0 L, Monocytes % 5.4, Eosinophils % 3.3, Basophils % 0.1, Absolute Granulocytes 5.5, Absolute Lymphocytes 1.4, Absolute Monocytes 0.4, Absolute Eosinophils 0.2, Absolute Basophils 0 06/13/17 0400: Sodium Cancelled, Potassium Cancelled, Chloride Cancelled, Carbon Dioxide Cancelled, Anion Gap Cancelled, BUN Cancelled, Creatinine Cancelled, BUN/ Creatinine Ratio Cancelled, CBC w Diff Cancelled, WBC Cancelled, RBC Cancelled, Hgb Cancelled, Hct Cancelled, MCV Cancelled, MCH Cancelled, MCHC Cancelled, RDW Cancelled, Plt Count Cancelled, MPV Cancelled 06/13/17 0300: Troponin I 0.41 *H 06/12/17 2247: Urine Opiates Screen < 100.00, Methadone Screen < 40, Barbiturate Screen < 60, Ur Phencyclidine Scrn < 6.00, Amphetamines Screen < 100, U Benzodiazepines Scrn < 85, Urine Cocaine Screen > 1000 H, Urine Cannabis Screen 6.20 06/12/17 2134: Anion Gap 10, Estimated GFR > 60, BUN/Creatinine Ratio 11.7, Glucose 320 H, Hemoglobin A1c 9.8 H, Calcium 9.2, Phosphorus 4.2, Magnesium 2.0, Total Bilirubin 0.4, AST 18, ALT 34, Alkaline Phosphatase 97, Troponin I 0.41 *H, Total Protein 6.3, Albumin 3.3 L, Globulin 3.0, Albumin/Globulin Ratio 1.1, Triglycerides 137, Cholesterol 223 H, LDL Cholesterol, Calc 130 H, HDL Cholesterol 66 H, Cholesterol/HDL Ratio 3, PT 10.3, INR 0.98, APTT 31, CBC w Diff NO MAN DIFF REQ, RBC 4.34 L, MCV 95.0 H, MCH 30.2, MCHC 31.8 L, RDW 14.0 , MPV 10.0, Gran % 64.1, Lymphocytes % 24.5, Monocytes % 9.2, Eosinophils % 2.0, Basophils % 0.2, Absolute Granulocytes 5.4, Absolute Lymphocytes 2.1, Absolute Monocytes 0.8 H, Absolute Eosinophils 0.2, Absolute Basophils 0, Serum Alcohol < 10.0, Acetone Level NEGATIVE 06/12/17 2108: Troponin I Cancelled Assessment/Plan Assessment: 52 yo M with h/o bipolar disorder, T2DM on insulin c/b neuropathy, HTN, who was in police custody on the admission as he was randomly knocking on people's doors asking for money. While in custody, police called EMS for a blood sugar check which was noted to be in 400's, so he was sent to ER for further eval. Patient was very somnolent, arousble and tends to have tangential thinking. He has been using cocaine and marijuana but denies IV drug use. He reports having substernal chest pain for the past 5 days but is not able to describe it or give an details. Patient denied any underlying cardiac history ischemic heart disease or arrhythmia. He states he has 'mold in his lungs' and he was admitted for this to [facility] last year. 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 Vitals stable except for elevated BP. Exam: lethargic, tends to fall asleep while talking, he is tearful at times, oriented x2, not aware of date/time. MMM, Neck supple, PERRL, Chest b/l scattered wheeze, Heart S1S2 regular, systolic murmur+, Abd benign, LE: LLE more swollen compared to RLE, dopplerable peripheral pulse on left, not dopplerable on the right. Labs: no leukocytosis, H/H 13.1/41.3, Na 133, glucose 320, trop 0.41. Acetone neg. Alcohol < 10. Urine tox screen positive for cocaine and cannabis. CXR: unremarkable. EKG: Sinus rhythm with J-point elevation in V2-3, with TWI in I and aVL (no old EKG), Qtc 478. In the ER, patient received IV fluids, insulin levemir, aspirin IV metoprolol and IV heparin. Patient was admitted to telemetry floor and treated for these medical conditions NSTEMI/Heavy cocaine abuse Troponin peaked at 0.41. The patient was put on IV heparin, however due to patient drowsiness CT of the head was obtained which showed possible evolving occipital stroke and heparin was stopped a couple of hours. However the subsequent head MRI showed chronic ischemic changes and heparin was restarted. Nitropaste and statin were started as well Echocardiogram showed EF of 40% and diastolic dysfunction stage II Patient will be transferred to [facility] for possible cardiac cath. on IV heparing and IV dextrose. PATIETN WILL BE ACCOMPANIED BY MACHINE ASSISTANT. 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 Essential hypertension Blood pressure was controlled during the hospitalization with ARB. low dose coreg added # History of bipolar disorder on 2 week respirdione injection #Possible underlying peripheral vascular disease we Obtain LE arterial and bilateral venous dopplers which showed to DVT. we continued gabapentin. artrial doppler Scattered abnormal biphasic and monophasic waveforms are present within both lower extremities, primarily from the mid superficial femoral artery through the calf. he should follow with outpatient vascular surgery - Hold losartan, monitor BP. - Accucheks, check HbA1c, hold Farxiga, initiate novolog NPO SS with levemir 10 units BID - Obtain Endo consult - Obtain records from PCP and last visit at [facility] - Psych consult for management of bipolar disorder continue risperidone - Obtain LE arterial and bilateral venous dopplers - Please confirm CMR in AM with patient's PCP and pharmacy. DVT ppx IV heparin. Full code. Problem List: 1. Non-STEMI (non-ST elevated myocardial infarction) 2. Hyperglycemia Pain Ratin Pain Location: Continue current transfer to [facility] Pain Goal: Pain 4 or less Pain Plan: Continue rita garcia Tomorrow's Labs & Rationales: CBc BEP
[2017-06-13 08:14] LABS: ABSOLUTE BASOPHIL COUNT 0 /CUMM (0.0-0.2); ABSOLUTE EOSINOPHIL COUNT 0.2 /CUMM (0.0-0.7); ABSOLUTE GRANULOCYTE CT 5.5 /CUMM (1.4-6.5); ABSOLUTE LYMPH COUNT 1.4 /CUMM (1.2-3.4); ABSOLUTE MONOCYTE COUNT 0.4 /CUMM (0.10-0.60); BASOPHIL % 0.1 % (0.0-2.0); EOSINOPHIL % 3.3 % (0-5); GRANULOCYTE % 72.2 % (42.2-75.2); HEMATOCRIT 38.5 % (42-52); MEAN CORPUSCULAR HGB 30.8 PG (27.0-31.0); MEAN CORPUSCULAR HGB CONC 32.5 G/DL (33.0-37.0); MEAN CORPUSCULAR VOLUME 94.7 FL (80.0-94.0); MEAN PLATELET VOLUME 9.3 FL (7.4-10.4); PLATELET COUNT 367 /CUMM (130-400); RBC DISTRIBUTION WIDTH 13.7 % (11.5-14.5); RED BLOOD CELL CT 4.07 /CUMM (4.70-6.10); WHITE BLOOD CELL COUNT 7.6 /CUMM (4.8-10.8)
[2017-06-13 08:19] LABS: PTT 31 SEC (25-37)
[2017-06-13 09:50] VITALS: BP 144/90
--- NOTE | 2017-06-13 09:57 | Cons- Cardiology ---
General Information and HPI Consulting Request Date of Consult: 06/13/17 Requested By: Mikey Frye MD Reason for Consult: Positive troponin I. Source of Information: patient, old records Exam Limitations: poor historian History of Present Illness: Mr. Paras jansen is a 52-year-old -[place] male with a history of bipolar disorder, cocaine use, hypertension, dyslipidemia, and diabetes mellitus with neuropathy who presented to the ED after being found to be hyperglycemic during his arrest and who was additionally found to have a positive troponin I ( 0.41 ng/ml). The patient reported heavy use of marijuana and crack cocaine over the 6 days prior to evaluation and additionally reported experiencing some intermittent palpitations and chest discomfort during this period of time. In the ED he denied any chest discomfort, palpitations, shortness of breath, nausea, diaphoresis etc. He denies any known history of coronary, valvular, dysrhythmic/conduction disease, or cardiomyopathy, but is a very poor historian. According to the record, the patient had been going [id number] and asking for money and as result of this the police were contacted and discovered that there was an outstanding warrant for his arrest and he was taken into custody. Allergies/Medications Allergies: Coded Allergies: meperidine (From DEMEROL) (VOMITING 06/12/17) Home Med List: Aspirin (Aspirin*) 81 MG TAB.CHEW 81 MG PO DAILY HEART Atorvastatin Calcium 40 MG TABLET 40 MG PO 1700 HEART Carvedilol 3.125 MG TABLET 3.125 MG PO BID heart Dapagliflozin Propanediol (Farxiga) 10 MG TABLET 1 TAB PO DAILY DM (Reported) Dextrose 5 %-0.45 % NaCl (Dextrose 5%-0.45% NaCl IV Soln) 5 %-0.45 % IV.SOLN 50 ML IV PER HOUR NPO Gabapentin (Neurontin) 800 MG TABLET 1 TAB PO BID NERVE PAIN (Reported) Heparin Sod,Porcine/0.9 % NaCl (Heparin-Ns 25,000 Units/250 Ml) 25,000 UNIT/250 ML (100 UNIT/ML) IV.SOLN 1 BAG IV SEE ADMIN CRITERIA NSTEMI per ACS protocol Insulin Aspart (Novolog) 100 UNIT/ML VIAL 0 UNITS SC Q4 DM Q4 hours Blood Insulin Sugar Units <80 0 81-100 0 151-200 4 201-250 5 251-300 6 301-350 7 351-400 8 >400 8 Call Doctor Insulin Aspart, Recombinant (Novolog Flexpen) 100 UNIT/ML INSULN.PEN 30 UNITS SC QPM DM (Reported) Insulin Detemir (Levemir) 100 UNIT/ML VIAL 10 UNITS SC BID DM Losartan Potassium 50 MG TABLET 1 TAB PO DAILY BP (Reported) Nitroglycerin (Nitro-Bid) 2 % OINT...G. 0.5 GM TOP Q12 chest pain Risperidone Microspheres (Risperdal Consta) 50 MG/2 ML SYRINGE 1 SYR INJ EVERY 2 WEEKS BIPOLAR (Reported) Review of Systems Review of Systems: The 14 point system review was obtained and was noncontributory, other than as above except, for the fact the patient wears glasses. 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 Home Who Do You Live With? self Services at Home: None Primary Language: Hungarian Smoking Status: Current Everyday Smoker ETOH Use: occasional use Illicit Drug Use: cocaine, marijuana Exam & Diagnostic Data Vital Signs and I&O Vital Signs Date Time Temp Pulse Resp B/P B/P Pulse O2 O2 Flow FiO2 Mean Ox Delivery Rate 06/13 0950 144/90 06/13 0626 60 20 160/74 95 06/13 0121 97.8 75 20 138/87 94 06/13 0119 Room Air 06/12 2356 80 112/76 06/12 2324 63 126/83 06/12 2259 68 178/101 06/12 2245 98.9 87 16 178/101 94 Room Air 06/12 2107 96.6 82 18 171/88 94 Room Air Intake & Output 06/13 1600 06/13 0000 06/12 1600 06/12 0000 Intake Total 120 480 Output Total 600 Balance 120 -120 Intake, IV 120 Intake, Oral 480 Output, Urine 600 Patient 259 lb Weight Weight Standing Scale Standing Scale Measurement Method Physical Exam: Well-developed, overweight middle-aged -[place] male in no acute distress. Vital signs: See above. HEENT: Normocephalic, atraumatic, EOMI, moist mucous membranes. Neck: No JVD, no bruits. Lungs: Clear to auscultation bilaterally. Heart: S1, S2 with no murmur, gallop, or rub appreciated. PMI fifth ICS at [facility]. Abdomen: Soft, nontender, positive bowel sounds. Extremities: No edema. Labs/Taiwo Results: Laboratory Tests 06/13 06/13 06/13 1500 1000 0937 Chemistry Troponin I (<0.11 ng/ml) Cancelled 0.38 *H Coagulation APTT Pending 06/13 06/13 06/13 0743 0400 0300 Chemistry Sodium (137 - 145 mmol/L) 136 L Cancelled Potassium (3.5 - 5.1 mmol/L) 4.3 Cancelled Chloride (98 - 107 mmol/L) 101 Cancelled Carbon Dioxide (22 - 30 mmol/L) 28 Cancelled Anion Gap (5 - 16) 8 Cancelled BUN (9 - 20 mg/dL) 16 Cancelled Creatinine (0.7 - 1.2 mg/dL) 1.1 Cancelled Estimated GFR (>60 ml/min) > 60 BUN/Creatinine Ratio (7 - 25 %) 14.5 Cancelled Troponin I (<0.11 ng/ml) 0.41 *H Coagulation APTT (25 - 37 SEC) 31 Hematology CBC w Diff NO MAN DIFF REQ Cancelled WBC (4.8 - 10.8 /CUMM) 7.6 Cancelled RBC (4.70 - 6.10 /CUMM) 4.07 L Cancelled Hgb (14.0 - 18.0 G/DL) 12.5 L Cancelled Hct (42 - 52 %) 38.5 L Cancelled MCV (80.0 - 94.0 FL) 94.7 H Cancelled MCH (27.0 - 31.0 PG) 30.8 Cancelled MCHC (33.0 - 37.0 G/DL) 32.5 L Cancelled RDW (11.5 - 14.5 %) 13.7 Cancelled Plt Count (130 - 400 /CUMM) 367 Cancelled MPV (7.4 - 10.4 FL) 9.3 Cancelled Gran % (42.2 - 75.2 %) 72.2 Lymphocytes % (20.5 - 51.1 %) 19.0 L Monocytes % (1.7 - 9.3 %) 5.4 Eosinophils % (0 - 5 %) 3.3 Basophils % (0.0 - 2.0 %) 0.1 Absolute Granulocytes (1.4 - 6.5 /CUMM) 5.5 Absolute Lymphocytes (1.2 - 3.4 /CUMM) 1.4 Absolute Monocytes (0.10 - 0.60 /CUMM) 0.4 Absolute Eosinophils (0.0 - 0.7 /CUMM) 0.2 Absolute Basophils (0.0 - 0.2 /CUMM) 0 06/12 06/12 06/12 2247 2134 2108 Chemistry Sodium (137 - 145 mmol/L) 133 L Potassium (3.5 - 5.1 mmol/L) 4.4 Chloride (98 - 107 mmol/L) 96 L Carbon Dioxide (22 - 30 mmol/L) 27 Anion Gap (5 - 16) 10 BUN (9 - 20 mg/dL) 14 Creatinine (0.7 - 1.2 mg/dL) 1.2 Estimated GFR (>60 ml/min) > 60 BUN/Creatinine Ratio (7 - 25 %) 11.7 Glucose (65 - 99 mg/dL) 320 H Hemoglobin A1c (4.2 - 5.8 %) 9.8 H Calcium (8.4 - 10.2 mg/dL) 9.2 Phosphorus (2.5 - 4.5 mg/dL) 4.2 Magnesium (1.6 - 2.3 mg/dL) 2.0 Total Bilirubin (0.2 - 1.3 mg/dL) 0.4 AST (17 - 59 U/L) 18 ALT (21 - 72 U/L) 34 Alkaline Phosphatase (< 127 U/L) 97 Troponin I (<0.11 ng/ml) 0.41 *H Cancelled Total Protein (6.3 - 8.2 g/dL) 6.3 Albumin (3.5 - 5.0 g/dL) 3.3 L Globulin (1.9 - 4.2 gm/dL) 3.0 Albumin/Globulin Ratio (1.1 - 2.2 %) 1.1 Triglycerides (<150 mg/dL) 137 Cholesterol (< 200 MG/DL) 223 H LDL Cholesterol, Calc (65 - 129 mg/dL) 130 H HDL Cholesterol (40 - 60 mg/dL) 66 H Cholesterol/HDL Ratio (0.00 - 4.88 %) 3 Coagulation PT (9.4 - 12.5 SEC) 10.3 INR (0.90 - 1.17) 0.98 APTT (25 - 37 SEC) 31 Hematology CBC w Diff NO MAN DIFF REQ WBC (4.8 - 10.8 /CUMM) 8.4 RBC (4.70 - 6.10 /CUMM) 4.34 L Hgb (14.0 - 18.0 G/DL) 13.1 L Hct (42 - 52 %) 41.3 L MCV (80.0 - 94.0 FL) 95.0 H MCH (27.0 - 31.0 PG) 30.2 MCHC (33.0 - 37.0 G/DL) 31.8 L RDW (11.5 - 14.5 %) 14.0 Plt Count (130 - 400 /CUMM) 370 MPV (7.4 - 10.4 FL) 10.0 Gran % (42.2 - 75.2 %) 64.1 Lymphocytes % (20.5 - 51.1 %) 24.5 Monocytes % (1.7 - 9.3 %) 9.2 Eosinophils % (0 - 5 %) 2.0 Basophils % (0.0 - 2.0 %) 0.2 Absolute Granulocytes (1.4 - 6.5 /CUMM) 5.4 Absolute Lymphocytes (1.2 - 3.4 /CUMM) 2.1 Absolute Monocytes (0.10 - 0.60 /CUMM) 0.8 H Absolute Eosinophils (0.0 - 0.7 /CUMM) 0.2 Absolute Basophils (0.0 - 0.2 /CUMM) 0 Toxicology Urine Opiates Screen (>2000 NG/ML) < 100.00 Methadone Screen (>300 NG/ML) < 40 Barbiturate Screen (>200 NG/ML) < 60 Ur Phencyclidine Scrn (>25 NG/ML) < 6.00 Amphetamines Screen (>1000 NG/ML) < 100 U Benzodiazepines Scrn (>200 NG/ML) < 85 Urine Cocaine Screen (>300 NG/ML) > 1000 H Urine Cannabis Screen (>50 NG/ML) 6.20 Serum Alcohol (<10 MG/DL) < 10.0 Acetone Level (NEGATIVE) NEGATIVE Diagnostic Data EKG Results 06/13/2017 sinus rhythm, possible left atrial abnormality, mild ST elevation in leads V1 and V2, and anterolateral T wave abnormalities in the precordial/high lateral leads. CXR Results 06/12/2017: No acute cardiopulmonary process. Other Results Head MRI 06/13/2017: 1. No evidence of acute cerebral ischemia or hemorrhage. 2. Chronic ischemic changes as described. Head CT 06/13/2017: 1. Age indeterminate subacute or evolving stroke suspected in the medial aspect right occipital lobe. Further assessment with MRI recommended. 2. Probable old cortical stroke or watershed infarct and encephalomalacia right superior anterior parietal region. 3. Evaluation is limited due to patient motion. Bilateral LE ultrasound 06/13/2017: 1. Scattered abnormal biphasic and monophasic waveforms are present within both lower extremities, primarily from the mid superficial femoral artery through the calf. 2. Focal asymmetrical increased velocity within the left common femoral artery suggests focal stenosis. If clinically indicated, these findings can be further evaluated with CTA lower extremity runoff. Carotid ultrasound 06/13/2017: 1. RIGHT: No significant stenosis of the proximal right internal carotid artery by velocity criteria. 2. LEFT: No significant stenosis of the proximal left internal carotid artery by velocity criteria. 3. Elevated velocity within the left external carotid artery suggesting mild to moderate stenosis. Echocardiogram 06/13/2017: 1. Normal size left ventricle. Mild concentric left ventricular hypertrophy. Mildly reduced global left ventricular systolic function. Mildly abnormal left ventricular ejection fraction estimated at 40%. "pseudonormal" filling pattern of the left ventricle for age (stage 2 diastolic dysfunction). 2. Normal right ventricular size and function. 3. Normal atrial size. 4. Trace mitral regurgitation. 5. Trace tricuspid regurgitation. 6. Unable to estimate the right ventricular systolic pressure. 7. Trace pulmonic regurgitation. 8. Dilated inferior vena cava. Assessment/Plan Assessment/Plan [id number] w/ hx bipolar disorder, cocaine use, HTN, HLD, DM w/ neuropathy who presented to the ED after being found to be hyperglycemic and to have a positive Troponin I & ECG changes c/w ischemia/injury. At present he is chest discomfort free, but his second troponin remained elevated and evolutionary changes are present on his 12-lead electrocardiogram. Earlier mental status changes raised the concern of a concomitant neurological event, but his MRI did not reveal any acute abnormalities. Recommendations: * Continue on telemetry for the short-term, follow-up electrocardiogram, follow up troponins. * Continue IV anticoagulation, antiplatelet therapy, statin, topical nitrates with a 10-12 hour nitrate free interval, etc. Start low-dose neena inhibitor or ARB. * Avoid beta blockers for now given earlier bradycardia. * Consider transfer for cardiac catheterization and revascularization. * Echocardiogram to assess left ventricular function, exclude segmental wall motion abnormalities, etc. * DVT prophylaxis being addressed by the IV heparin. Further recommendations will follow, Thank you. Consult Acknowledgment - Thank you for your consult request.
--- NOTE | 2017-06-13 11:24 | CT SCAN REPORT ---
EXAMINATION: CT HEAD WITHOUT CONTRAST CLINICAL INFORMATION: Altered mental status. Evaluate for stroke. COMPARISON: None TECHNIQUE: Contiguous axial imaging was performed from the skull base to vertex without intravenous administration of contrast. DLP: 791.17 mGy-cm FINDINGS: There is no evidence of acute intra-axial or extra-axial hemorrhage. No acute mass effect or midline shift. Age indeterminate loss of haile-white differentiation noted in the right medial occipital lobe. (Series 2 image 29). Probable old cortical infarct and encephalomalacia noted in the right superior parietal lobe. No gross evidence of ex vacuo dilatation. Evaluation of the inferior aspects of the brain including inferior supratentorial and infratentorial regions is limited due to motion degradation.. The mastoid air cells and visualized portions of the paranasal sinuses are well aerated. IMPRESSION: 1. Age indeterminate subacute or evolving stroke suspected in the medial aspect right occipital lobe. Further assessment with MRI recommended. 2. Probable old cortical stroke or watershed infarct and encephalomalacia right superior anterior parietal region. 3. Evaluation is limited due to patient motion. Critical results were discussed with Dr. Malik at 10:51 AM on 06/13/2017.
--- NOTE | 2017-06-13 12:49 | ECHOCARDIOGRAM REPORT ---
DEBORAH DUKE Age: 52 : 1965 Gender: M Exam Date: 06/13/2017 10:23 Exam Location: [address] Ht (in): 72 Wt (lb): 259 BSA: 2.48 BP: 160 / 74 Ordering Physician: Khushi Cota MD Referring Physician: Khushi Cota MD Technologist: Rajendra Le [facility] Room Number: 182-1 Indications: LV FUNCTION AFTER ACS Rhythm: Sinus Technical Quality: Fair FINDINGS Left Ventricle Normal size left ventricle. Mild concentric left ventricular hypertrophy. Mildly reduced global left ventricular systolic function. Mildly abnormal left ventricular ejection fraction estimated at 40%. "pseudonormal" filling pattern of the left ventricle for age (stage 2 diastolic dysfunction). Right Ventricle Normal right ventricular size and function. Right Atrium Normal right atrial size. Left Atrium Normal left atrial size. Mitral Valve Mild mitral annular calcification. Mitral valve mildly thickened. Trace mitral regurgitation. Aortic Valve Trileaflet aortic valve. Mild aortic sclerosis. No aortic valve stenosis or regurgitation. Tricuspid Valve Structurally normal tricuspid valve. Trace tricuspid regurgitation. Unable to estimate the right ventricular systolic pressure. Pulmonic Valve Pulmonic valve not well visualized, grossly normal. Trace pulmonic regurgitation. Pericardium No pericardial effusion. Great Vessels Normal size aortic root and ascending aorta. Dilated inferior vena cava. CONCLUSIONS Normal size left ventricle. Mild concentric left ventricular hypertrophy. Mildly reduced global left ventricular systolic function. Mildly abnormal left ventricular ejection fraction estimated at 40%. "pseudonormal" filling pattern of the left ventricle for age (stage 2 diastolic dysfunction). Normal right ventricular size and function. Normal atrial size. Trace mitral regurgitation. Trace tricuspid regurgitation. Unable to estimate the right ventricular systolic pressure. Trace pulmonic regurgitation. Dilated inferior vena cava. [place] M.D. (Electronically Signed) Final Date: 13 June 2017 12:49 MEASUREMENTS (Male / Female) Normal Values 2D ECHO LV Diastolic Diameter PLAX 5.1 cm 4.2 - 5.9 / 3.9 - 5.3 cm LV Systolic Diameter PLAX 4.1 cm 2.1 - 4.0 cm LV Fractional Shortening PLAX 19.6 % 25 - 46 % LV Ejection Fraction 2D Teich 40.0 % IVS Diastolic Thickness 1.2 cm LVPW Diastolic Thickness 1.2 cm LV Relative Wall Thickness 0.5 RV Internal Dim ED PLAX 3.3 cm 1.9 - 3.8 cm LVOT Diameter 2.1 cm Aortic Root Diameter 3.0 cm LA Systolic Diameter LX 3.1 cm 3.0 - 4.0 / 2.7 - 3.8 cm LA Volume 50.0 cm 18 - 58 / 22 - 52 cm Ascending Aorta Diameter 3.1 cm DOPPLER AV Peak Velocity 149.0 cm/s AV Peak Gradient 8.9 mmHg AV Mean Velocity 99.8 cm/s AV Mean Gradient 5.0 mmHg AV Velocity Time Integral 30.8 cm LVOT Peak Velocity 113.0 cm/s LVOT Peak Gradient 5.1 mmHg LVOT Mean Velocity 63.5 cm/s LVOT Mean Gradient 2.0 mmHg LVOT Velocity Time Integral 22.0 cm LVOT Stroke Volume 76.2 cm AV Area Cont Eq vti 2.5 cm AV Area Cont Eq pk 2.6 cm MV Peak Velocity 89.3 cm/s MV Peak Gradient 3.2 mmHg MV Mean Velocity 51.1 cm/s MV Mean Gradient 1.0 mmHg Mitral E Point Velocity 93.8 cm/s Mitral A Point Velocity 63.7 cm/s Mitral E to A Ratio 1.5 MV PHT Velocity 86.9 cm/s MV Deceleration Reagan 216.0 cm/s MV Pressure Half Time 120.7 ms MV Area PHT 1.8 cm MV Deceleration Time 180.0 ms PV Peak Velocity 91.0 cm/s PV Peak Gradient 3.3 mmHg PV Mean Velocity 64.5 cm/s PV Mean Gradient 2.0 mmHg PV Velocity Time Integral 18.6 cm LV E' Lateral Velocity 9.3 cm/s Mitral E to LV E' Lateral Ratio 10.1 LV E' Septal Velocity 5.9 cm/s Mitral E to LV E' Septal Ratio 16.0
[2017-06-13] MEDS ORDERED: ATORVASTATIN CA40 M1 PO (13:13)
[2017-06-13] MEDS ORDERED: ASPIRIN81 M4 PO (13:13)
--- NOTE | 2017-06-13 13:43 | MRI REPORT ---
EXAMINATION: MR BRAIN WITHOUT CONTRAST CLINICAL INFORMATION: 52-year-old man with confusion and suspected stroke. COMPARISON: 06/13/[address] TECHNIQUE: MRI of the brain without contrast was obtained using routine sequences. 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 There could be some old hemosiderin staining versus laminar necrosis around the right parietal infarct. No focal reduced diffusion is seen to suggest acute or subacute cerebral ischemia. No intracranial mass, intracerebral edema, intra-axial blood products, midline shift, or extra-axial collection is visualized. The ventricles and sulcal spaces appear normal. Normal arterial and venous vascular flow voids are present. There is mild mucosal thickening in the ethmoid air cells and patchy opacification of a few right mastoid tip cells. IMPRESSION: No evidence of acute cerebral ischemia or hemorrhage. Chronic ischemic changes as described.
--- NOTE | 2017-06-13 14:26 | Discharge Summary ---
Visit Information Visit Dates Admission Date: 06/12/17 Discharge Date: 06/13/2017 Hospital Course Course Attending Physician: Mikey Frye MD Primary Care Physician: dr juarez [facility] Hospital Course: 52 yo M with h/o bipolar disorder, T2DM on insulin c/b neuropathy, HTN, who was in police custody on the admission as he was randomly knocking on people's doors asking for money. While in custody, police called EMS for a blood sugar check which was noted to be in 400's, so he was sent to ER for further eval. Patient was very somnolent, arousble and tends to have tangential thinking. He has been using cocaine and marijuana but denies IV drug use. He reports having substernal chest pain for the past 5 days but is not able to describe it or give an details. Patient denied any underlying cardiac history ischemic heart disease or arrhythmia. He states he has 'mold in his lungs' and he was admitted for this to [facility] last year. 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 Vitals stable except for elevated BP. Exam: lethargic, tends to fall asleep while talking, he is tearful at times, oriented x2, not aware of date/time. MMM, Neck supple, PERRL, Chest b/l scattered wheeze, Heart S1S2 regular, systolic murmur+, Abd benign, LE: LLE more swollen compared to RLE, dopplerable peripheral pulse on left, not dopplerable on the right. Labs: no leukocytosis, H/H 13.1/41.3, Na 133, glucose 320, trop 0.41. Acetone neg. Alcohol < 10. Urine tox screen positive for cocaine and cannabis. CXR: unremarkable. EKG: Sinus rhythm with J-point elevation in V2-3, with TWI in I and aVL (no old EKG), Qtc 478. In the ER, patient received IV fluids, insulin levemir, aspirin IV metoprolol and IV heparin. Patient was admitted to telemetry floor and treated for these medical conditions NSTEMI/Heavy cocaine abuse Troponin peaked at 0.41. The patient was put on IV heparin, however due to patient drowsiness CT of the head was obtained which showed possible evolving occipital stroke and heparin was stopped a couple of hours. However the subsequent head MRI showed chronic ischemic changes and heparin was restarted. Nitropaste and statin were started as well Echocardiogram showed EF of 40% and diastolic dysfunction stage II Patient will be transferred to [facility] for possible cardiac cath. on IV heparing and IV dextrose. PATIETN WILL BE ACCOMPANIED BY MACHINE CERAMIC COATER. 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 Essential hypertension Blood pressure was controlled during the hospitalization with ARB. low dose coreg added # History of bipolar disorder on 2 week respirdione injection #Possible underlying peripheral vascular disease we Obtain LE arterial and bilateral venous dopplers which showed to DVT. we continued gabapentin. artrial doppler Scattered abnormal biphasic and monophasic waveforms are present within both lower extremities, primarily from the mid superficial femoral artery through the calf. he should follow with outpatient vascular surgery - Hold losartan, monitor BP. - Accucheks, check HbA1c, hold Farxiga, initiate novolog NPO SS with levemir 10 units BID - Obtain Endo consult - Obtain records from PCP and last visit at [facility] - Psych consult for management of bipolar disorder continue risperidone - Obtain LE arterial and bilateral venous dopplers - Please confirm CMR in AM with patient's PCP and pharmacy. DVT ppx IV heparin. Full code. Allergies: Coded Allergies: meperidine (From DEMEROL) (VOMITING 06/12/17) Pertinent Lab Results: PATIENT: DEBORAH DUKE PRESENT AGE: 52 PATIENT ACCOUNT NO: [id number] : 64 LOCATION: [facility] ORDERING PHYSICIAN: Khushi Cota MD SERVICE DATE: 06/13/17 EXAM TYPE: CARD - ECHOCARDIOGRAM DEBORAH DUKE Age: 52 : 1965 Gender: M Exam Date: 06/13/2017 10:23 Exam Location: 1 [place] Ht (in): 72 Wt (lb): 259 BSA: 2.48 BP: 160 / 74 Ordering Physician: Khushi Cota MD Referring Physician: Khushi Cota MD Technologist: Rajendra Le [facility] Room Number: 182-1 Indications: LV FUNCTION AFTER ACS Rhythm: Sinus Technical Quality: Fair FINDINGS Left Ventricle Normal size left ventricle. Mild concentric left ventricular hypertrophy. Mildly reduced global left ventricular systolic function. Mildly abnormal left ventricular ejection fraction estimated at 40%. "pseudonormal" filling pattern of the left ventricle for age (stage 2 diastolic dysfunction). Right Ventricle Normal right ventricular size and function. Right Atrium Normal right atrial size. Left Atrium Normal left atrial size. Mitral Valve Mild mitral annular calcification. Mitral valve mildly thickened. Trace mitral regurgitation. Aortic Valve Trileaflet aortic valve. Mild aortic sclerosis. No aortic valve stenosis or regurgitation. Tricuspid Valve Structurally normal tricuspid valve. Trace tricuspid regurgitation. Unable to estimate the right ventricular systolic pressure. Pulmonic Valve Pulmonic valve not well visualized, grossly normal. Trace pulmonic regurgitation. Pericardium No pericardial effusion. Great Vessels Normal size aortic root and ascending aorta. Dilated inferior vena cava. CONCLUSIONS Normal size left ventricle. Mild concentric left ventricular hypertrophy. Mildly reduced global left ventricular systolic function. Mildly abnormal left ventricular ejection fraction estimated at 40%. "pseudonormal" filling pattern of the left ventricle for age (stage 2 diastolic dysfunction). Normal right ventricular size and function. Normal atrial size. Trace mitral regurgitation. Trace tricuspid regurgitation. Unable to estimate the right ventricular systolic pressure. Trace pulmonic regurgitation. Dilated inferior vena cava. Maxx Hill M.D. (Electronically Signed) Final Date: 13 June 2017 12:49 MEASUREMENTS (Male / Female) Normal Values 2D ECHO LV Diastolic Diameter PLAX 5.1 cm 4.2 - 5.9 / 3.9 - 5.3 cm LV Systolic Diameter PLAX 4.1 cm 2.1 - 4.0 cm LV Fractional Shortening PLAX 19.6 % 25 - 46 % LV Ejection Fraction 2D Teich 40.0 % IVS Diastolic Thickness 1.2 cm LVPW Diastolic Thickness 1.2 cm LV Relative Wall Thickness 0.5 RV Internal Dim ED PLAX 3.3 cm 1.9 - 3.8 cm LVOT Diameter 2.1 cm Aortic Root Diameter 3.0 cm LA Systolic Diameter LX 3.1 cm 3.0 - 4.0 / 2.7 - 3.8 cm LA Volume 50.0 cm 18 - 58 / 22 - 52 cm Ascending Aorta Diameter 3.1 cm DOPPLER AV Peak Velocity 149.0 cm/s AV Peak Gradient 8.9 mmHg AV Mean Velocity 99.8 cm/s AV Mean Gradient 5.0 mmHg AV Velocity Time Integral 30.8 cm LVOT Peak Velocity 113.0 cm/s LVOT Peak Gradient 5.1 mmHg LVOT Mean Velocity 63.5 cm/s LVOT Mean Gradient 2.0 mmHg LVOT Velocity Time Integral 22.0 cm LVOT Stroke Volume 76.2 cm AV Area Cont Eq vti 2.5 cm AV Area Cont Eq pk 2.6 cm MV Peak Velocity 89.3 cm/s MV Peak Gradient 3.2 mmHg MV Mean Velocity 51.1 cm/s MV Mean Gradient 1.0 mmHg Mitral E Point Velocity 93.8 cm/s Mitral A Point Velocity 63.7 cm/s Mitral E to A Ratio 1.5 MV PHT Velocity 86.9 cm/s MV Deceleration Richardson 216.0 cm/s MV Pressure Half Time 120.7 ms MV Area PHT 1.8 cm MV Deceleration Time 180.0 ms PV Peak Velocity 91.0 cm/s PV Peak Gradient 3.3 mmHg PV Mean Velocity 64.5 cm/s PV Mean Gradient 2.0 mmHg PV Velocity Time Integral 18.6 cm LV E' Lateral Velocity 9.3 cm/s Mitral E to LV E' Lateral Ratio 10.1 LV E' Septal Velocity 5.9 cm/s Mitral E to LV E' Septal Ratio 16.0 DICTATED BY: Maxx Hill MD DATE/TIME DICTATED:06/13/171248 MERCHANDISE EXECUTION LEADER:SERGE DATE/TIME TRANSCRIBED:06/13/171248 CONFIDENTIAL, DO NOT COPY WITHOUT APPROPRIATE AUTHORIZATION. <Electronically signed in Other Vendor System> SIGNED BY: Maxx Hill MD 06/13/171248 ======= PATIENT: DEBORAH DUKE PRESENT AGE: 52 PATIENT ACCOUNT NO: [id number] : 64 LOCATION: [facility] ORDERING PHYSICIAN: Jose F Rodriguez MD SERVICE DATE: 06/13/17 EXAM TYPE: MRI - MRI-HEAD W/O MICHAEL EXAMINATION: MR BRAIN WITHOUT CONTRAST CLINICAL INFORMATION: 52-year-old man with confusion and suspected stroke. COMPARISON: 06/13/[address] TECHNIQUE: MRI of the brain without contrast was obtained using routine sequences. 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 There could be some old hemosiderin staining versus laminar necrosis around the right parietal infarct. No focal reduced diffusion is seen to suggest acute or subacute cerebral ischemia. No intracranial mass, intracerebral edema, intra-axial blood products, midline shift, or extra-axial collection is visualized. The ventricles and sulcal spaces appear normal. Normal arterial and venous vascular flow voids are present. There is mild mucosal thickening in the ethmoid air cells and patchy opacification of a few right mastoid tip cells. IMPRESSION: No evidence of acute cerebral ischemia or hemorrhage. Chronic ischemic changes as described. DICTATED BY: Zulema Pedro MD DATE/TIME DICTATED:06/13/171335 MERCHANDISE EXECUTION LEADER:SERGE DATE/TIME TRANSCRIBED:06/13/171335 CONFIDENTIAL, DO NOT COPY WITHOUT APPROPRIATE AUTHORIZATION. <Electronically signed in Other Vendor System> SIGNED BY: Zulema Pedro MD 06/13/17 1343 ======== PATIENT: DEBORAH DUKE PRESENT AGE: 52 PATIENT ACCOUNT NO: [id number] : 64 LOCATION: O ORDERING PHYSICIAN: Smith Malik MD SERVICE DATE: 06/13/17 EXAM TYPE: CAT - CT HEAD WO IV CONTRAST EXAMINATION: CT HEAD WITHOUT CONTRAST CLINICAL INFORMATION: Altered mental status. Evaluate for stroke. COMPARISON: None TECHNIQUE: Contiguous axial imaging was performed from the skull base to vertex without intravenous administration of contrast. DLP: 791.17 mGy-cm FINDINGS: There is no evidence of acute intra-axial or extra-axial hemorrhage. No acute mass effect or midline shift. Age indeterminate loss of haile-white differentiation noted in the right medial occipital lobe. (Series 2 image 29). Probable old cortical infarct and encephalomalacia noted in the right superior parietal lobe. No gross evidence of ex vacuo dilatation. Evaluation of the inferior aspects of the brain including inferior supratentorial and infratentorial regions is limited due to motion degradation.. The mastoid air cells and visualized portions of the paranasal sinuses are well aerated. IMPRESSION: 1. Age indeterminate subacute or evolving stroke suspected in the medial aspect right occipital lobe. Further assessment with MRI recommended. 2. Probable old cortical stroke or watershed infarct and encephalomalacia right superior anterior parietal region. 3. Evaluation is limited due to patient motion. Critical results were discussed with Dr. Malik at 10:51 AM on 06/13/2017. DICTATED BY: Tami Rojo MD DATE/TIME DICTATED:06/13/171034 MERCHANDISE EXECUTION LEADER:SERGE DATE/TIME TRANSCRIBED:06/13/171034 CONFIDENTIAL, DO NOT COPY WITHOUT APPROPRIATE AUTHORIZATION. <Electronically signed in Other Vendor System> SIGNED BY: Tami Rojo MD 06/13/17 1124 ======== PATIENT: DEBORAH DUKE PRESENT AGE: 52 PATIENT ACCOUNT NO: [id number] : 64 LOCATION: 1NO ORDERING PHYSICIAN: Khushi Cota MD SERVICE DATE: 06/13/17- EXAM TYPE: US - US-EXT BILAT VENOUS DOPPLER EXAMINATION: BILATERAL LOWER EXTREMITY VENOUS ULTRASOUND CLINICAL INFORMATION: Increased leg swelling, left greater than right. Presumptive diagnosis of rule out DVT. COMPARISON: None TECHNIQUE: Doppler spectral analysis and color flow Doppler imaging was performed of the lower extremities. Compression and augmentation maneuvers were performed. FINDINGS: Evaluation is mildly limited due to patient's body habitus and restlessness. The right and left common femoral vein, greater saphenous vein takeoff, femoral vein, and popliteal vein are normally compressible with normal augmentation responses and phasic changes seen with Doppler imaging. The midcalf peroneal and posterior tibial veins are patent as well. No popliteal cyst is seen. IMPRESSION: No evidence of deep venous thrombosis in the right or left lower extremity. DICTATED BY: Lucille Ryder MD DATE/TIME DICTATED:06/13/171438 MERCHANDISE EXECUTION LEADER:SERGE DATE/TIME TRANSCRIBED:06/13/171438 CONFIDENTIAL, DO NOT COPY WITHOUT APPROPRIATE AUTHORIZATION. <Electronically signed in Other Vendor System> SIGNED BY: Lucille Ryder MD [id number] PATIENT: DEBORAH DUKE PRESENT AGE: 52 PATIENT ACCOUNT NO: [id number] : 64 LOCATION: 1NO ORDERING PHYSICIAN: Khushi Cota MD SERVICE DATE: 06/13/17- EXAM TYPE: US - US-BILAT LOW EXTR ARTERIAL DOP EXAMINATION: COLOR-FLOW DUPLEX IMAGING OF THE BILATERAL LOWER EXTREMITY ARTERIAL SYSTEM. VELOCITY MEASUREMENTS THROUGHOUT THE FEMORAL ARTERIES. CLINICAL INFORMATION: 52-year-old male with weak pulse of the bilateral lower extremities. Thickened toenails. COMPARISON: None RIGHT FEMORAL RUNOFF VELOCITIES: The right common femoral artery measures 96cm/s and is triphasic. The right profunda femoral artery measures 88cm/s and is triphasic. Right proximal superficial femoral artery measures 106 cm/s and is triphasic. Mid superficial femoral artery measures 56cm/s and is biphasic. Distal right superficial femoral artery measures 38cm/s and is biphasic. Right popliteal velocity measures 44cm/s and is triphasic. Posterior tibial velocity is 69cm/s and flow is biphasic. Anterior tibial velocity is 68cm/s and flow is monophasic. Dorsal pedis velocity is 32cm/s and flow is monophasic. LEFT FEMORAL RUNOFF VELOCITIES: The left common femoral artery measures 186cm/s and is triphasic. The left profunda femoral artery measures 72cm/s and is triphasic. Left proximal superficial femoral artery measures 86 cm/s and is triphasic. Mid superficial femoral artery measures 74cm/s and is biphasic. Distal left superficial femoral artery measures 110cm/s and is biphasic. Left popliteal velocity measures 104cm/s and is biphasic. Posterior tibial velocity is 52cm/s and flow is biphasic. Anterior tibial velocity is 29cm/s and flow is monophasic. Dorsal pedis velocity is 46cm/s and flow is monophasic. IMPRESSION: Scattered abnormal biphasic and monophasic waveforms are present within both lower extremities, primarily from the mid superficial femoral artery through the calf. Focal asymmetrical increased velocity within the left common femoral artery suggests focal stenosis. If clinically indicated, these findings can be further evaluated with CTA lower extremity runoff. DICTATED BY: Brian Reagan MD DATE/TIME DICTATED:06/13/171503 MERCHANDISE EXECUTION LEADER:SERGE DATE/TIME TRANSCRIBED:06/13/171503 CONFIDENTIAL, DO NOT COPY WITHOUT APPROPRIATE AUTHORIZATION. <Electronically signed in Other Vendor System> SIGNED BY: Brian Reagan MD 06/13/17 1512 ======= PATIENT: DEBORAH DUKE PRESENT AGE: 52 PATIENT ACCOUNT NO: [id number] : 64 LOCATION: 1NO ORDERING PHYSICIAN: Smith Malik MD SERVICE DATE: 06/13/17- EXAM TYPE: US - [id number] DOPPLER EXAMINATION: DUPLEX BILATERAL CAROTID ULTRASOUND CLINICAL INFORMATION: 52-year-old male with hypertension and pneumonia. Concern for stroke. Evaluation for stenosis requested.. COMPARISON: No similar prior examinations available for comparison. TECHNIQUE: Real-time ultrasound and Doppler techniques (integrating B-mode 2D vascular images, Doppler spectral analysis and color flow Doppler imaging) were utilized to interrogate the extracranial carotid and vertebral arteries bilaterally. The degree of stenosis determined by criteria similar to NASCET. Examination difficult as the patient was sleeping and snoring intermittently during examination. FINDINGS: Right side: 1. No appreciable plaque is seen in the ECA/ICA region. 2. The common carotid artery velocity is 83 cm/s. 3. The internal carotid artery velocities are 58 cm/s systolic and 28 cm/s diastolic. 4. The external carotid artery velocity is 127 cm/s. Left side: 1. No appreciable plaque is seen in the ECA/ICA region. 2. The common carotid artery velocity is 73 cm/s. 3. The internal carotid artery velocities are 54 cm/s systolic and 21 cm/s diastolic. 4. The external carotid artery velocity is 229 cm/s. ADDITIONAL FINDINGS: 1. The vertebral arteries show antegrade flow. IMPRESSION: 1. RIGHT: No significant stenosis of the proximal right internal carotid artery by velocity criteria. 2. LEFT: No significant stenosis of the proximal left internal carotid artery by velocity criteria. 3. Elevated velocity within the left external carotid artery suggesting mild to moderate stenosis. DICTATED BY: Brian Reagan MD DATE/TIME DICTATED:06/13/171500 MERCHANDISE EXECUTION LEADER:SERGE DATE/TIME TRANSCRIBED:06/13/171500 CONFIDENTIAL, DO NOT COPY WITHOUT APPROPRIATE AUTHORIZATION. <Electronically signed in Other Vendor System> SIGNED BY: Brian Reagan MD 06/13/171506 PATIENT: DEBORAH DUKE PRESENT AGE: 52 PATIENT ACCOUNT NO: [id number] : 64 LOCATION: [facility] ORDERING PHYSICIAN: Ryder SANCHEZ SERVICE DATE: 06/12/17 EXAM TYPE: RAD - XRY-PORTABLE CHEST XRAY EXAMINATION: XR PORTABLE CHEST CLINICAL INFORMATION: Chest pain COMPARISON: None TECHNIQUE: Portable frontal view of the chest was obtained. 11:05 PM FINDINGS: No significant abnormality is noted involving the heart, lungs, mediastinum, bony thorax or soft tissues. IMPRESSION: Unremarkable examination. DICTATED BY: Robert Leal MD DATE/TIME DICTATED:06/12/172340 MERCHANDISE EXECUTION LEADER:SERGE DATE/TIME TRANSCRIBED:06/12/172340 CONFIDENTIAL, DO NOT COPY WITHOUT APPROPRIATE AUTHORIZATION. <Electronically signed in Other Vendor System> SIGNED BY: Robert Leal MD 06/12/172344 Disposition Summary Disposition Principal Diagnosis: NSTEMI Cocaine abuse Hyperglycemia Additional Diagnosis: DM old infarcts hx of bipolar Discharge Disposition: other general hospital Discharge Instructions General Discharge Information Code Status: Full Code Patient's Diet: NPO Patient's Activity: as tolerated Follow-Up Instructions/Appts: -you are being transferred to another hospital for further management of your heart condition -Please follow-up with your navy diver 7 days after discharge -please follow-up with your histology aide 7 days after discharge -Please follow-up with vascular surgery regarding the findings of your arterial Doppler in the lower extremities. -Please follow-up with your primary care provider within 7 days after discharge. -We have made changes to your home medications, please read the instructions carefully. -Please come back to the hospital if your symptoms got worse. Medications at Discharge Discharge Medications: Stop taking the following medications: Insulin Aspart, Recombinant (Novolog Flexpen) 100 UNIT/ML INSULN.PEN Inject into fatty tissue Every night Qty = 15 Dapagliflozin Propanediol (Farxiga) 10 MG TABLET ORAL DAILY Qty = 30 Continue taking these medications: Losartan Potassium (Losartan Potassium) 50 MG TABLET 1 Tablet ORAL DAILY Qty = 30 Gabapentin (Neurontin) 800 MG TABLET 1 Tablet ORAL TWICE DAILY Qty = 60 Comments: Last Taken: 06/13/17 Time: 0930 Risperidone Microspheres (Risperdal Consta) 50 MG/2 ML SYRINGE 1 Syringe INJECTABLE EVERY 2 WEEKS Qty = 1 Comments: NOT GIVEN AT HOSPITAL Start taking the following new medications: Atorvastatin Calcium (Atorvastatin Calcium) 40 MG TABLET 40 Milligram ORAL 5 PM Qty = 30 No Refills Aspirin (Aspirin*) 81 MG TAB.CHEW 81 Milligram ORAL DAILY Qty = 30 No Refills Comments: Last Taken: 06/13 Time: 0900 Nitroglycerin (Nitro-Bid) 2 % OINT...G. 0.5 Gram On the skin EVERY 12 HOURS Qty = 1 No Refills Comments: Last Taken: 06/13/17 Time: 1000 AM Carvedilol (Carvedilol) 3.125 MG TABLET 3.125 Milligram ORAL TWICE DAILY Qty = 30 No Refills Insulin Detemir (Levemir) 100 UNIT/ML VIAL 10 Units Inject into fatty tissue TWICE DAILY Qty = 1 No Refills Insulin Aspart (Novolog) 100 UNIT/ML VIAL 0 Units Inject into fatty tissue Every 4 hours Qty = 1 No Refills Instructions: Q4 hours Blood Insulin Sugar Units <80 0 81-100 0 151-200 4 201-250 5 251-300 6 301-350 7 351-400 8 >400 8 Call Doctor Dextrose 5 %-0.45 % NaCl (Dextrose 5%-0.45% NaCl IV Soln) 5 %-0.45 % IV.SOLN 50 Milliliters INTRAVEN PER HOUR Qty = 1 No Refills Heparin Sod,Porcine/0.9 % NaCl (Heparin-Ns 25,000 Units/250 Ml) 25,000 UNIT/250 ML (100 UNIT/ML) IV.SOLN 1 Bag INTRAVEN SEE INSTRUCTIONS Qty = 1 No Refills Instructions: per ACS protocol Copies To: Darby CERVANTES,Antonio; Sergio CERVANTES,Maxx Swapna; Karina CERVANTES,Cornell Roger Attending MD Review Statement Documenting Attending: Mikey Frye MD Other Findings: The patient was seen and agree with transfer to [facility] for cath. No acute neurologic event on MRI. His PCP is in [place].
--- NOTE | 2017-06-13 14:44 | ULTRASOUND REPORT ---
EXAMINATION: BILATERAL LOWER EXTREMITY VENOUS ULTRASOUND CLINICAL INFORMATION: Increased leg swelling, left greater than right. Presumptive diagnosis of rule out DVT. COMPARISON: None TECHNIQUE: Doppler spectral analysis and color flow Doppler imaging was performed of the lower extremities. Compression and augmentation maneuvers were performed. FINDINGS: Evaluation is mildly limited due to patient's body habitus and restlessness. The right and left common femoral vein, greater saphenous vein takeoff, femoral vein, and popliteal vein are normally compressible with normal augmentation responses and phasic changes seen with Doppler imaging. The midcalf peroneal and posterior tibial veins are patent as well. No popliteal cyst is seen. IMPRESSION: No evidence of deep venous thrombosis in the right or left lower extremity.
--- NOTE | 2017-06-13 14:59 | Patient Discharge Instructions ---
Discharge Instructions General Discharge Information You were seen/treated for: NSTEMI Diabetes Polysubstance abuse Special Instructions: -you are being transferred to another hospital for further management of your heart condition -Please follow-up with your monument setter helper 7 days after discharge -please follow-up with your cable wirer 7 days after discharge -Please follow-up with vascular surgery regarding the findings of your arterial Doppler in the lower extremities. -Please follow-up with your primary care provider within 7 days after discharge. -We have made changes to your home medications, please read the instructions carefully. -Please come back to the hospital if your symptoms got worse. Diet Continue normal diet: No Recommended Diet: NPO Activity Full Activity/No Limits: Yes (as tolerated) Acute Coronary Syndrome Inclusion Criteria At DC or during hospital stay patient has or had the following: ACS DIAGNOSIS Yes Discharge Core Measures Meds if any: Prescribed or Continued at Discharge SOFÍA/ARB if EF <40% Yes Aspirin Yes Beta-Roderick Yes Statin Yes Meds if any: NOT Prescribed or Continued at Discharge Congestive Heart Failure Inclusion Criteria At DC or during hospital stay patient has or had the following: CHF DIAGNOSIS Yes Discharge Core Measures Meds if any: Prescribed or Continued at Discharge SOFÍA/ARB for EF <40% Yes Meds if any: NOT Prescribed or Continued at Discharge Cerebrovascular accident Inclusion Criteria At DC or during hospital stay patient has or had the following: CVA/TIA Diagnosis No Discharge Core Measures Meds if any: Prescribed or Continued at Discharge Meds if any: NOT Prescribed or Continued at Discharge Venous thromboembolism Inclusion Criteria VTE Diagnosis No VTE Type NONE VTE Confirmed by (Test) NONE Discharge Core Measures - Per Current guidelines, there needs to be overlap - treatment for the first 5 days of Warfarin therapy. - If discharged on Warfarin prior to 5 days of - overlap therapy, the patient will need to be - assessed for post discharge needs including - *Post discharge parental anticoagulation - *Warfarin and/or parental anticoagulation education - *Follow up date to check INR post discharge At least 5 days overlap therapy as Inpatient No Meds if any: Prescribed or Continued at Discharge Note: Overlap Therapy is Warfarin and Anticoagulant Meds if any: NOT Prescribed or Continued at Discharge
--- NOTE | 2017-06-13 15:07 | ULTRASOUND REPORT ---
EXAMINATION: DUPLEX BILATERAL CAROTID ULTRASOUND CLINICAL INFORMATION: 52-year-old male with hypertension and pneumonia. Concern for stroke. Evaluation for stenosis requested.. COMPARISON: No similar prior examinations available for comparison. TECHNIQUE: Real-time ultrasound and Doppler techniques (integrating B-mode 2D vascular images, Doppler spectral analysis and color flow Doppler imaging) were utilized to interrogate the extracranial carotid and vertebral arteries bilaterally. The degree of stenosis determined by criteria similar to NASCET. Examination difficult as the patient was sleeping and snoring intermittently during examination. FINDINGS: Right side: 1. No appreciable plaque is seen in the ECA/ICA region. 2. The common carotid artery velocity is 83 cm/s. 3. The internal carotid artery velocities are 58 cm/s systolic and 28 cm/s diastolic. 4. The external carotid artery velocity is 127 cm/s. Left side: 1. No appreciable plaque is seen in the ECA/ICA region. 2. The common carotid artery velocity is 73 cm/s. 3. The internal carotid artery velocities are 54 cm/s systolic and 21 cm/s diastolic. 4. The external carotid artery velocity is 229 cm/s. ADDITIONAL FINDINGS: 1. The vertebral arteries show antegrade flow. IMPRESSION: 1. RIGHT: No significant stenosis of the proximal right internal carotid artery by velocity criteria. 2. LEFT: No significant stenosis of the proximal left internal carotid artery by velocity criteria. 3. Elevated velocity within the left external carotid artery suggesting mild to moderate stenosis.
--- NOTE | 2017-06-13 15:12 | ULTRASOUND REPORT ---
EXAMINATION: COLOR-FLOW DUPLEX IMAGING OF THE BILATERAL LOWER EXTREMITY ARTERIAL SYSTEM. VELOCITY MEASUREMENTS THROUGHOUT THE FEMORAL ARTERIES. CLINICAL INFORMATION: 52-year-old male with weak pulse of the bilateral lower extremities. Thickened toenails. COMPARISON: None RIGHT FEMORAL RUNOFF VELOCITIES: The right common femoral artery measures 96cm/s and is triphasic. The right profunda femoral artery measures 88cm/s and is triphasic. Right proximal superficial femoral artery measures 106 cm/s and is triphasic. Mid superficial femoral artery measures 56cm/s and is biphasic. Distal right superficial femoral artery measures 38cm/s and is biphasic. Right popliteal velocity measures 44cm/s and is triphasic. Posterior tibial velocity is 69cm/s and flow is biphasic. Anterior tibial velocity is 68cm/s and flow is monophasic. Dorsal pedis velocity is 32cm/s and flow is monophasic. LEFT FEMORAL RUNOFF VELOCITIES: The left common femoral artery measures 186cm/s and is triphasic. The left profunda femoral artery measures 72cm/s and is triphasic. Left proximal superficial femoral artery measures 86 cm/s and is triphasic. Mid superficial femoral artery measures 74cm/s and is biphasic. Distal left superficial femoral artery measures 110cm/s and is biphasic. Left popliteal velocity measures 104cm/s and is biphasic. Posterior tibial velocity is 52cm/s and flow is biphasic. Anterior tibial velocity is 29cm/s and flow is monophasic. Dorsal pedis velocity is 46cm/s and flow is monophasic. IMPRESSION: Scattered abnormal biphasic and monophasic waveforms are present within both lower extremities, primarily from the mid superficial femoral artery through the calf. Focal asymmetrical increased velocity within the left common femoral artery suggests focal stenosis. If clinically indicated, these findings can be further evaluated with CTA lower extremity runoff.
[2017-06-13] MEDS ORDERED: CARVEDILOL3.125 M1 PO (15:14)
[2017-06-13] MEDS ORDERED: NITRO-BID1 GM TOP (15:14)
[2017-06-13] MEDS ORDERED: [UNRECOGNIZED DRUG - CODE] IV (15:14)
[2017-06-13] MEDS ORDERED: LEVEMIR100 UNIT/1 SC (15:17)
[2017-06-13] MEDS ORDERED: NOVOLOG100 UNIT/2 SC (15:17)
[2017-06-13 15:28] VITALS: BP 156/70
[2017-06-13] MEDS ORDERED: HEPARIN-NS25000 UNIT IV (15:43)
[2017-06-13 16:54] LABS: PTT 43 SEC (25-37)
== END 2017-06-13 17:35 | disposition short-term general hospital (02) | DRG 282 ==
LOC: ERH 21:01 → ERHI 23:32 → 1NO 23:32
PROVIDERS: Internal Medicine; Pediatrics; Student in an Organized Health Care Education/Training Program
DX: I21.4 Non-ST elevation (NSTEMI) myocardial infarction (principal); E11.42 Type 2 diabetes mellitus with diabetic polyneuropathy; E11.65 Type 2 diabetes mellitus with hyperglycemia; F31.9 Bipolar disorder, unspecified; F14.10 Cocaine abuse, uncomplicated; F12.90 Cannabis use, unspecified, uncomplicated; I10 Essential (primary) hypertension; F17.200 Nicotine dependence, unspecified, uncomplicated; Z79.4 Long term (current) use of insulin
CPT/HCPCS: 70551; ERO; 36415; 71045; 80307; 82436; 93005; 93010; 93306; 93925; 93970; 96372; 96374; 96375; 99291; G0480; J1644; J1815; J3490; J7042